=== PATIENT | female | born 1990 | race Caucasian/White ===

== ENCOUNTER 2019-12-18 15:47 | Emergency (ER) | payer OTHER, SELFPAY ==
--- NOTE | ~2019-12-18 | XR_ITS ---
EXAMINATION: XR sacrum coccyx min 2V DATE: 12/18/2019 17:07 INDICATION: Coccygeal pain. Fall. TECHNIQUE: 3 views of the sacrum and coccyx were obtained. COMPARISON: None. FINDINGS: Bone alignment is normal. No fracture. The sacroiliac joints are normal. There is an intrau terine device in expected position. IMPRESSION: 1. No fracture. Reviewed, dictated and finalized at location A. IMPRESSION: 1. No fracture.
--- NOTE | 2019-12-18 15:58 | ED.FALL ---
HPI - Fall General Chief Complaint: Back Pain/Injury Stated Complaint: fell and hurt tailbone Time Seen by Provider: 12/18/19 15:58 Source: patient Mode of arrival: ambulatory Limitations: no limitations History of Present Illness HPI Narrative: A 29-year-old woman comes in today complaining of tailbone pain after she slipped on some concrete and landed on her backside about 2 hours ago. He states he has had no numbness or tingling and while she landed on her wrist she currently has no wrist pain. She denies any other injury. complaint: fall Onset (ago): hour(s) (2) Fall from: standing Fall witnessed: no Place fall occurred: home Loss of consciousness: none Prolonged down time: no Symptoms prior to fall: none Context: tripped/slipped Location of injury: buttocks Severity: severe Quality: sharp Associated symptoms (after fall): denies Related Data Allergies Allergy/AdvReac Type Severity Reaction Status Date / Time No Known Allergies Allergy Verified 12/18/19 16:04 Review of Systems Constitutional: Constitutional: Denies chills, Denies fever(s) and Denies weakness Eyes: Eyes: Denies change in vision and Denies photophobia ENT: Denies dysphagia, Denies nasal congestion and Denies sore throat Cardiovascular: Cardiovascular: Denies chest pain and Denies radiating jaw, neck or arm pain Respiratory: Respiratory: Denies cough, Denies dyspnea and Denies wheezing Gastrointestinal: Gastrointestinal: Denies abdominal pain, Denies diarrhea, Denies nausea and Denies vomiting Genitourinary: Genitourinary: Denies hematuria, Denies nocturia and Denies dysuria Musculoskeletal: Musculoskeletal: Reports back pain, Denies arthralgias and Denies joint swelling Integumentary/Breasts: Skin/Breast: Denies pruritus, Denies erythema and Denies rash Neurologic: Denies vertigo, Denies dizziness and Denies syncope Hematologic/Lymphatic: Hematologic/Lymphatic: Denies easy bleeding and Denies easy bruising Allergic/Immunologic: Allergic/Immunologic: Denies lip swelling and Denies wheezing PMFSH Social History Social History (Updated 12/18/19 @ 16:14 by Abdelrahman Munguia MD) Smoking status: Never smoker Substance use: never Living arrangements: with family Exam Const: General: healthy appearing and alert Nutritional Appearance: obese Orientation/consciousness: patient oriented x3 Other: Moderate acute distress. Standing in the room. HENMT: Mouth: Yes moist mucous membranes Eyes: Conjunctivae: conjunctivae normal Pupils: Equal, round and reactive pupils present EOM: EOMs intact bilaterally Resp: Effort & Inspection: normal respiratory effort and not labored Auscultation: clear to auscultation bilaterally, no rales, no rhonchi and no wheezes Cardio: Rate: regular rate Rhythm: regular rhythm Heart sounds: no murmurs Back/Spine/Pelvis: Other: Tenderness over the lower part of the sacrum and the coccyx. There is some mild bruising present. There is no step-off, swelling or abnormal contour. Skin: General skin exam: normal color, no jaundice and no pallor Rashes: no rashes Neuro: General: patient oriented x3, moves all extremities, no focal motor deficits and CN's II-XI intact bilaterally Extrem: General: normal to inspection and no clubbing, cyanosis or edema Psych: Appearance: grossly normal and well kempt Mental Status: mental status grossly normal Affect: normal affect Attitude: cooperative Thought content: Yes Normal thought content present Discharge Plan Discharge Clinical Impression: Acute coccygeal pain Patient Disposition: Home, Self-Care Condition: Stable Instructions: Coccyx Injury (ED) Additional Instructions: Use a donut pillow for sitting. Avoid prolonged sitting or lying on your back. Prescriptions: New hydrocodone-acetaminophen [[place]] 5-325 mg tablet 1 tablet PO Q6H PRN (Reason: pain) Qty: 20 RF: 0 Follow-up/Referrals: UNKNOWN,DOCTOR [Primary Care P
[2019-12-18 16:05] VITALS: BP 137/77; PULSE 125; RESP 20; TEMP 36.9; O2SAT 99
[2019-12-18] MEDS: KETOROLAC (*BKC) 60 MG/2 ML VIAL IM (16:17)
[2019-12-18 16:43] LABS: Pregnancy On Board Control POS; Specific Gravity Ur 1.015 (1.010-1.035); Urine Pregnancy Test Negative
--- NOTE | 2019-12-18 17:12 | PC.NURSE ---
Pt states pain is still present but is improved. Is now able to stand up straight without difficulty. Awaiting dispo per Dr Munguia.
[2019-12-18 17:32] VITALS: BP 121/73; PULSE 92; RESP 18; O2SAT 98
== END 2019-12-18 17:32 | disposition home or self-care (01) ==
PROVIDERS: Emergency Provider Emergency Medicine
DX: M53.3 Sacrococcygeal disorders, not elsewhere classified (principal)
CPT/HCPCS: 72220; 81025; 96372; 99283; A9270; J1885

== ENCOUNTER 2021-01-26 15:07 | Outpatient (CLI) | payer OTHER, SELFPAY | END 2021-01-26 15:08 | disposition home or self-care (01) | LOC: CHSLAB 15:08 | PROVIDERS: Visit Provider Obstetrics & Gynecology | DX: O20.0 Threatened abortion (principal) | CPT/HCPCS: 36415; 84702; 86850; 86900; 86901 ==

== ENCOUNTER 2021-01-30 13:10 | Outpatient (CLI) | payer OTHER, SELFPAY | END 2021-01-30 13:11 | disposition home or self-care (01) | LOC: CHSLAB 13:12 | PROVIDERS: Visit Provider Obstetrics & Gynecology | DX: O03.9 Complete or unspecified spontaneous abortion without complication (principal) | CPT/HCPCS: 36415; 84702 ==

== ENCOUNTER 2021-02-06 11:17 | Outpatient (CLI) | payer OTHER, SELFPAY ==
[2021-02-06 11:49] LABS: Beta HCG Quantitative < 1.00 mIU/mL (0-6)
== END 2021-02-06 11:18 | disposition home or self-care (01) ==
LOC: CHSLAB 11:20
PROVIDERS: Visit Provider Obstetrics & Gynecology
DX: O03.9 Complete or unspecified spontaneous abortion without complication (principal)
CPT/HCPCS: 36415; 84702

== ENCOUNTER 2021-06-15 11:44 | Outpatient (CLI) | payer OTHER, SELFPAY ==
[2021-06-15 12:08] LABS: Add Urine Microscopic? YES; Appearance Urine Sl Cloudy (Clear); Bilirubin Urine Negative (Negative); Blood Urine Negative (Negative); Color Urine Yellow (Yellow); Glucose Urine UA Negative (Negative); Ketones Urine Negative (Negative); Leukocyte Esterase Ur Negative (Negative); Nitrate Urine Negative (Negative); Protein Urine Negative (Negative)
[2021-06-15 12:12] LABS: Bacteria Urine 1+ /hpf; RBC Urine None seen /hpf (0-2); Squamous Epithelial Cell Urine Moderate /hpf (Few); WBC Urine None seen /hpf (0-3)
[2021-06-15 12:19] LABS: Amphetamine Screen Urine Negative (Negative); Barbiturate Screen Urine Negative (Negative); Benzodiazepines Screen Urine Negative (Negative); Cannabinoid Screen Urine Negative (Negative); Cocaine Screen Urine Negative (Negative); Methadone Screen Urine Negative (Negative); Opiate Screen Urine Negative (Negative); Phencyclidine Screen Urine Negative (Negative)
[2021-06-15 12:54] LABS: Basophils Absolute Auto 0.01 K/mm3 (0.00-0.10); Basophils Percent Auto 0.1 % (0.0-1.0); Eosinophils Absolute Auto 0.03 K/mm3 (0.02-0.50); Eosinophils Percent Auto 0.4 % (1.0-6.0); Hematocrit 37.1 % (35.0-49.0); Hemoglobin 13.2 g/dL (12.0-15.0); Immature Granulocyte Absolute 0.03 K/mm3 (0.00-0.00); Immature Granulocyte Percent A 0.4 % (0.0-0.0); Lymphocytes Absolute Auto 1.38 K/mm3 (1.10-4.50); Lymphocytes Percent Auto 18.4 % (18.0-42.0); Mean Corpuscular HGB Conc 35.6 g/dL (32.0-36.0); Mean Corpuscular Hemoglobin 32.4 pg (27.0-31.0); Mean Corpuscular Volume 91.2 fL (78.0-102.0); Mean Platelet Volume 9.1 fl (9.2-11.8); Monocytes Absolute Auto 0.62 K/mm3 (0.10-0.90); Monocytes Percent Auto 8.3 % (2.0-11.0); Neutrophils Absolute Auto 5.4 K/mm3 (1.7-7.2); Neutrophils Percent Auto 72.4 % (50.0-70.0); Platelet Count Result 224 K/mm3 (150-420); Red Blood Count 4.07 M/mm3 (4.20-5.40); Red Cell Distribution Width 11.5 % (11.6-14.4); White Blood Count 7.5 K/mm3 (4.8-10.8)
[2021-06-15 13:13] LABS: Glucose 1 Hour PP 50gm Dose 95 mg/dL (70-130)
[2021-06-15 13:35] LABS: HIV 1 P24 AG Negative (Negative); HIV 1/2 AB Negative (Negative)
[2021-06-18 15:57] LABS: RPR Screen Reactive (Non-Reactive)
[2021-06-18 18:11] LABS: RPR Titer Reactive 1:1
[2021-06-18 18:52] LABS: Rubella IgG Antibody 4.72 Index
[2021-06-19 10:47] LABS: FTA-ABS Nonreactive (Nonreactive)
[2021-06-20 03:39] LABS: Hepatitis B Surface Antigen Nonreactive (Nonreactive); Hepatitis C Signal to Cutoff 0.01 ratio (<1.00); Hepatitis C Virus Antibody Nonreactive (Nonreactive)
== END 2021-06-15 11:45 | disposition home or self-care (01) ==
LOC: CHSLAB 11:47
PROVIDERS: Visit Provider Advanced Practice Midwife
DX: Z36.89 Encounter for other specified antenatal screening (principal)
CPT/HCPCS: 36415; 80307; 81001; 82947; 85025; 86592; 86703; 86762; 86850; 86900; 86901; 87077; 87086

== ENCOUNTER 2021-06-22 16:14 | Outpatient (CLI) | payer OTHER, SELFPAY ==
[2021-06-22 16:37] LABS: Add Urine Microscopic? YES; Appearance Urine Sl Cloudy (Clear); Bilirubin Urine Negative (Negative); Blood Urine Negative (Negative); Color Urine Yellow (Yellow); Glucose Urine UA Negative (Negative); Ketones Urine Negative (Negative); Leukocyte Esterase Ur Negative (Negative); Nitrate Urine Positive (Negative); Protein Urine Negative (Negative); Specific Grav Ur 1.025 (1.010-1.020); pH Urine 6.5 (5.0-8.0)
[2021-06-22 16:44] LABS: Bacteria Urine 4+ /hpf; Squamous Epithelial Cell Urine Many /hpf (Few); WBC Urine 0-3 /hpf (0-3)
== END 2021-06-22 16:15 | disposition home or self-care (01) ==
LOC: CHSLAB 16:17
PROVIDERS: Visit Provider Advanced Practice Midwife
DX: Z36.9 Encounter for antenatal screening, unspecified (principal)
CPT/HCPCS: 81001; 87086

== ENCOUNTER 2021-09-08 15:48 | Outpatient (CLI) | payer OTHER, SELFPAY ==
--- NOTE | ~2021-09-08 | US_ITS ---
US OB /maternal detail DATE: 09/08/2021 17:10 INDICATION: screening TECHNIQUE: Real-time imaging and Doppler analysis COMPARISON: None FINDINGS: Live cagle intrauterine gestation, fetus in variable position during the examination. Anterior placenta, lower margin 3 cm above internal os. Subjectively normal amount of amniotic fluid. No evidence of cerebral ventriculomegaly. Normal cerebellum. Normal nuchal fold. Normal nose and lips. Normal spine. Four chamber heart with normal outflow tracts. Diaphragm intact. Fet al kidneys are normal; no hydronephrosis. Fluid demonstrated in stomach and urinary bladder. male genitalia. BPD 5.04 cm; 21 weeks 2 days Head circumference 19.51 cm; 21 weeks 5 days Abdominal circumference 16.58 cm; 21 weeks 4 days Femur length 3.73 cm; 21 weeks 6 days Composite age by Hadlock formula is 21 weeks 4 days plus or minus 1 week 4 days; THOR: 01/15/2022 Estimated weight: 445.4 plus or minus 67 grams HC/AC 1.18 (normal range 1.06-1.24) FL/AC 22.50 (normal range 20.00-24.00) FL/HC 19.12 (normal range 17.33-20.24) IMPRESSION: Composite age by Hadlock formula is 21 weeks 4 days plus or minus 1 week 4 days; THOR: Estimated weight: 445.4 plus or minus 67 grams Normal anatomy screen Reviewed, dictated and finalized at Location A. Reviewed, dictated and finalized at location A. [facility]ER IMPRESSION: Composite age by Hadlock formula is 21 weeks 4 days plus or minus 1 week 4 days; THOR: 01/15/2022 Estimated weight: 445.4 plus or minus 67 grams Normal anatomy screen
== END 2021-09-08 15:49 | disposition home or self-care (01) ==
LOC: ANHIMG 15:51
PROVIDERS: Visit Provider Obstetrics & Gynecology
DX: Z36.9 Encounter for antenatal screening, unspecified (principal)
CPT/HCPCS: 76805

== ENCOUNTER 2021-10-31 15:34 | Outpatient (CLI) | payer OTHER, SELFPAY ==
[2021-10-31 17:09] LABS: Basophils Absolute Auto 0.01 K/mm3 (0.00-0.10); Basophils Percent Auto 0.1 % (0.0-1.0); Eosinophils Absolute Auto 0.01 K/mm3 (0.02-0.50); Eosinophils Percent Auto 0.1 % (1.0-6.0); Hematocrit 34.8 % (35.0-49.0); Hemoglobin 12.4 g/dL (12.0-15.0); Immature Granulocyte Absolute 0.04 K/mm3 (0.00-0.00); Immature Granulocyte Percent A 0.4 % (0.0-0.0); Lymphocytes Absolute Auto 1.33 K/mm3 (1.10-4.50); Lymphocytes Percent Auto 14.1 % (18.0-42.0); Mean Corpuscular HGB Conc 35.6 g/dL (32.0-36.0); Mean Corpuscular Hemoglobin 34.1 pg (27.0-31.0); Mean Corpuscular Volume 95.6 fL (78.0-102.0); Mean Platelet Volume 9.6 fl (9.2-11.8); Monocytes Absolute Auto 0.74 K/mm3 (0.10-0.90); Monocytes Percent Auto 7.9 % (2.0-11.0); Neutrophils Absolute Auto 7.3 K/mm3 (1.7-7.2); Neutrophils Percent Auto 77.4 % (50.0-70.0); Platelet Count Result 231 K/mm3 (150-420); Red Blood Count 3.64 M/mm3 (4.20-5.40); White Blood Count 9.4 K/mm3 (4.8-10.8)
[2021-10-31 17:55] LABS: HIV 1 P24 AG Negative (Negative); HIV 1/2 AB Negative (Negative)
[2021-10-31 18:09] LABS: Glucose 1 Hour PP 50gm Dose 94 mg/dL (70-130)
[2021-11-02 16:41] LABS: RPR Screen Non-Reactive (Non-Reactive)
== END 2021-10-31 15:35 | disposition home or self-care (01) ==
PROVIDERS: PCP Advanced Practice Midwife; Visit Provider Advanced Practice Midwife
DX: Z36.9 Encounter for antenatal screening, unspecified (principal)
CPT/HCPCS: 36415; 82947; 85025; 86592; 86703; 86850

== ENCOUNTER 2022-04-15 07:48 | Observation (INO) | payer OTHER, SELFPAY ==
--- NOTE | ~2022-04-15 | CT_ITS ---
EXAMINATION: CT thoracic spine wo con DATE: 04/15/2022 08:56 INDICATION: Back pain. TECHNIQUE: Computed tomography (CT) of the thoracic spine was performed without intravenous contrast. The dose-length product was 1566.53 mGy-cm. Automated exposure control and iterative reconstruction technique were employed. COMPARISON: None FINDINGS: There is mild levoscoliosis. Vertebral body heights are maintained. There is mild degenerat jessica disc disease of the lower thoracic spine multiple levels. There is dependent atelectasis in the l ungs. No significant spinal stenosis. Calcified granuloma in the left lower lobe. IMPRESSION: 1. No acute abnormality of the thoracic spine. 2: Mild lumbar spondylosis with levocurvature of the thoracic spine. Reviewed, dictated and finalized at location A.
--- NOTE | ~2022-04-15 | CT_ITS ---
EXAMINATION: CT lumbar spine wo con DATE: 04/15/2022 08:55 INDICATION: Low back pain TECHNIQUE: Computed tomography (CT) of the lumbar spine was performed without intravenous contrast. T he dose-length product was 1566.53 mGy-cm. Automated exposure control and iterative reconstruction te chnique were employed. COMPARISON: None FINDINGS: Vertebral body heights are maintained. No fracture or traumatic malalignment. Mild levocurv ature of the lumbar spine. There is an IUD in the uterus. There is a Fields catheter present. Small am ount of free fluid in the pelvis. No significant paraspinal soft tissue abnormality. There is annular disc bulging at L3-4, L4-5 and L5-S1. There is mild spinal stenosis at L4-5. No significant neural f oraminal narrowing. IMPRESSION: 1. No acute abnormality of the lumbar spine. 2: Mild lumbar spondylosis. Reviewed, dictated and finalized at location A.
--- NOTE | 2022-04-15 07:53 | ED.GENADULT ---
HPI - General Adult General Chief complaint: Back Pain/Injury Stated complaint: ambulance History of Present Illness HPI narrative: Mona is a 31F with a PMH of DJD and eclampsia that presented to the ED via EMS with back pain. She had part of her back go out yesterday and she was in the shower this morning and the whole back went out. She went down and could not get up. She was given 4mg of morphine that only brought the pain down to an 8. She had to be extracted with a back board and was transported in prone. She can move her lower extremities and there was no loss of bowel or bladder control. Related Data Home Medications Medication Instructions Recorded Confirmed No Home Medications 04/15/22 04/15/22 Allergies Allergy/AdvReac Type Severity Reaction Status Date / Time latex Allergy Hives Verified 04/15/22 08:13 Review of Systems Constitutional: Constitutional: Reports no additional constitutional complaints Eyes: Eyes: Reports no additional eye complaints ENT: Reports system reviewed and no additional complaints, except as documented Cardiovascular: Cardiovascular: Reports no additional cardiovascular complaints Respiratory: Respiratory: Reports no additional respiratory complaints Gastrointestinal: Gastrointestinal: Reports no additional gastrointestinal complaints Genitourinary: Genitourinary: Reports no additional female genitourinary complaints Musculoskeletal: Musculoskeletal: Reports no additional musculoskeletal complaints Integumentary/Breasts: Skin/Breast: Reports system reviewed and no additional complaints, except as docu Neurologic: Reports system reviewed and no additional complaints, except as documented Psychiatric: Psychiatric: Reports no additional psychiatric complaints Endocrine: Endocrine: Reports no additional endocrine complaints Hematologic/Lymphatic: Hematologic/Lymphatic: Reports no additional hematologic/lymphatic complaints Allergic/Immunologic: Allergic/Immunologic: Reports no additional allergic/immunologic complaints [facility] Social History Social History (Updated 12/18/19 @ 16:14 by Abdelrahman Munguia MD) Smoking status: Never smoker Alcohol intake: former Drinks per week: 1 Substance use: never Spiritual care concerns: No Exam Const: Nutritional Appearance: well nourished Orientation/consciousness: patient oriented x3 Other: In mild distress HENMT: Head: normal to inspection Ears: external ears normal General nose exam: Normal external nose present Face and sinus: normal facial exam Eyes: Conjunctivae: conjunctivae normal Neck: Neck: normal visual inspection Chest: Chest palpation & inspection: normal inspection of the chest Resp: Effort & Inspection: normal respiratory effort Auscultation: clear to auscultation bilaterally Cardio: Rate: regular rate Rhythm: regular rhythm Heart sounds: no murmurs Skin: General skin exam: normal color Rashes: no rashes Neuro: General: patient oriented x3 and moves all extremities Cranial nerves: Yes Nystagmus not present Extrem: General: normal to inspection Psych: Mental Status: mental status grossly normal Course Course Emergency Course: She was given 50mcg of fentanyl for pain. EXAMINATION: CT lumbar spine wo con DATE: 04/15/2022 08:55 INDICATION: Low back pain TECHNIQUE: Computed tomography (CT) of the lumbar spine was performed without intravenous contrast. The dose-length product was 1566.53 mGy-cm. Automated exposure control and iterative reconstruction technique were employed. COMPARISON: None FINDINGS: Vertebral body heights are maintained. No fracture or traumatic malalignment. Mild levocurvature of the lumbar spine. There is an IUD in the uterus. There is a Fields catheter present. Small amount of free fluid in the pelvis. No significant paraspinal soft tissue abnormality. There is annular disc bulging at L3-4, L4-5 and L5-S1. There is mild spinal stenosis at L4-5. No signific
[2022-04-15] MEDS: fentaNYL CITRATE INJ (*CRX) 100 MCG/2 ML VIAL 50 MCG IV PUSH (07:59)
[2022-04-15 08:04] VITALS: BP 121/75; PULSE 93; RESP 17; TEMP 36.8; O2SAT 100
[2022-04-15 08:32] LABS: Pregnancy On Board Control Positive; Urine Pregnancy Test Negative
[2022-04-15 10:12] VITALS: BP 122/71; PULSE 88; RESP 16; TEMP 36.8; O2SAT 100
--- NOTE | 2022-04-15 10:48 | ADMGEN ---
This patient, Mona Ramirez, was admitted to 2nd Floor Room 227-1. Patient/family oriented to hospital policies and general routines including ID bracelet, bed and alarms, visiting hours, pain management, procedures, bathroom and other care routines, personal items, smoking policy, room service/diet, and visiting hours. Information on how to activate the Rapid Response Team has been discussed. Patient/Family are encouraged to report perceived risks to care and to ask questions if they do not understand what they are told or what they should do.
[2022-04-15 10:50] VITALS: BMI 38.0
[2022-04-15 11:08] VITALS: BP 118/71; PULSE 85; RESP 20; TEMP 36.4; O2SAT 100
[2022-04-15] MEDS: KETOROLAC 15 MG/ML VIAL (*BKC) IV PUSH ×2 (11:33→17:57)
[2022-04-15] MEDS: CYCLOBENZAPRINE HCL 10 MG TABLET PO ×2 (11:33→20:24)
[2022-04-15] MEDS: predniSONE 20 MG TABLET 40 MG PO (11:54)
[2022-04-15 16:00] VITALS: BP 103/68; PULSE 100; RESP 18; TEMP 36.6; O2SAT 97
[2022-04-15 19:54] VITALS: PULSE 100; RESP 18; O2SAT 97
[2022-04-15] MEDS: ACETAMINOPHEN 325 MG TABLET 650 MG PO (20:24)
[2022-04-16] VITALS: BP 117/68; PULSE 99; RESP 16; TEMP 36.4; O2SAT 99
[2022-04-16] MEDS: KETOROLAC 15 MG/ML VIAL (*BKC) IV PUSH ×2 (00:19→06:19)
[2022-04-16] MEDS: ACETAMINOPHEN 325 MG TABLET 650 MG PO (04:34)
[2022-04-16] MEDS: CYCLOBENZAPRINE HCL 10 MG TABLET PO (04:34)
[2022-04-16 08:00] VITALS: BP 118/80; PULSE 103; RESP 16; TEMP 36.6; O2SAT 100
[2022-04-16] MEDS: predniSONE 10 MG TABLET 30 MG PO (08:34)
[2022-04-16] MEDS: ENOXAPARIN 40 MG/0.4 ML SYRINGE SUB-Q (08:34)
--- NOTE | 2022-04-16 10:31 | PM.SD2 ---
Same Day Admit/Disch: HPI History of Present Illness Chief complaint: BACK PAIN Narrative: Mona Ramirez is a 31 year old female with a PMH of DJD and eclampsia that presented to the ED via EMS with back pain. She had part of her back go out yesterday and she was in the shower this morning and the whole back went out. She went down and could not get up. She was given 4mg of morphine that only brought the pain down to an 8. She had to be extracted with a back board and was transported in prone. She can move her lower extremities and there was no loss of bowel or bladder control. Admitted for pain control PMFSH Social History Social History Smoking status: Never smoker Alcohol intake: former Drinks per week: 1 Substance use: never Spiritual care concerns: No Comments At time as signature, I have reviewed and agree with nursing past medical, social, surgical and family history. Please see nursing chart for further information. There is no relevant family history pertinent to the presenting complaint. Same Day Admit/Disch: Med Pre-admit Medications Home Medications Medication Instructions Recorded Confirmed Type cyclobenzaprine 10 mg tablet 10 mg PO Q8H PRN Muscle Spasm #20 04/16/22 Rx tabs prednisone 10 mg tablet 10 mg PO DAILY #14 tabs 04/16/22 Rx Exam Narrative: GENERAL:Well-appearing, well-nourished, and in no acute distress. HEAD:Normocephalic, atraumatic. EYES: PERRLA and EOMI. ENT: Nares clear, no rhinorrhea or epistaxis. Mucous membranes moist. NECK: Supple. CHEST: Clear to auscultation. No respiratory distress. HEART: Regular rate and rhythm. No murmur heard. Normal peripheral pulses. ABDOMEN: Soft, nontender, nondistended, normal active bowel sounds. EXTREMITIES:decreased due to pain range of motion. No edema. SKIN: Warm, dry, no rash. NEURO: No focal deficits. Alert and oriented x3. DS: Summary Hospital Course Reason for hospitalization: Back pain inability to move Hospital Course: This is a 31 year old female that was seen in the emergency room due to intractable back pain and was brought in by ambulance out of the shower as she was not able to get up. Patient recently had a baby 6 weeks and in breast feeding. Xr and Ct scan did not show any fractures or reason why patient should be having all of this pain I kept patient as observation gave muscle relaxant and some steroids and symptoms improved where she was able to ambulate and move. Patient has a newly schedule appointment at [facility] with a MRI schedule as well. Time Spent with Patient Time attestation: Total time spent providing and/or coordinating discharge services: DS: Admitting Diagnosis Discharge Date 04/16/2022 Admitting Diagnosis Intractable back pain, lumbar Spasm DS: Discharge Diagnosis Discharge Diagnosis (1) Intractable back pain: Code(s): M54.9 - Dorsalgia, unspecified Status: Acute Assessment and Plan: Appointment at [facility] on Saturday MRI of spine Continue to take muscle spasm medication Discharge Plan Discharge Attending physician on discharge: Geovanny Soto Consulting providers: Hudson Wilkes ; Glen Guerin Discharging Clinician: Hudson Wilkes Anticipated Discharge Date/Time: 04/16/22 10:21 Patient Disposition: Home, Self-Care Activity: may shower, no straining and as tolerated Diet: as tolerated and regular Discharge Instructions: Ice and heat to the area for 20-30 minutes Gentle stretching exercises, Caution with lifting, bending, stooping, twisting Avoid pushing, pulling Take muscle relaxants as directed--caution drowsiness and no driving or alcohol Anti-inflammatory medicine as directed--take with food May take the muscle relaxant and anti-inflammatory at the same time Follow-up with your PCP if not improving in 5-7 days Keep your schedule appointment on Saturday Patient Inst
--- NOTE | 2022-04-16 10:46 | PC.NURSE ---
Patient walked to toilet with SBA. Able to urinate without difficulty. No c/o of discomfort or burning
--- NOTE | 2022-04-16 11:27 | PC.NURSE ---
Patient discharge instructions given. Taken to lobby by wheelchair to private auto.
--- NOTE | 2022-04-23 12:23 | PC.NURSE ---
Unable to contact for discharge call back.
== END 2022-04-16 11:20 | disposition home or self-care (01) ==
LOC: CHSED 08:06 → CHS2ND 10:02
PROVIDERS: Admitting Provider Internal Medicine; Emergency Provider Family Medicine; PCP Advanced Practice Midwife; Visit Provider Internal Medicine
DX: M54.9 Dorsalgia, unspecified (principal); S39.012A Strain of muscle, fascia and tendon of lower back, initial encounter; M62.830 Muscle spasm of back
CPT/HCPCS: 72128; 72131; 81025; 96374; 96375; 96376; 97161; 99285; A9270; G0378; J1650; J1885; J3010; J7512

== ENCOUNTER 2023-05-07 20:34 | Emergency (ER) | payer OTHER, SELFPAY ==
--- NOTE | ~2023-05-07 | CT_ITS ---
EXAMINATION: CT abdomen pelvis wo con DATE: 05/07/2023 21:22 INDICATION: Left flank pain TECHNIQUE: Computed tomography (CT) of the abdomen and pelvis was performed without intravenous contr ast. Automated exposure control and iterative reconstruction technique were employed. The dose-length product was 475.24 mGy-cm. COMPARISON: None. FINDINGS: Lower thorax: Calcified left lower lobe granuloma Liver: Normal. Biliary/Gallbladder: Gallbladder is normal. No bile duct dilation. Pancreas: No mass or duct dilation. Spleen: Small hypodensity, likely cyst or hemangioma. Adrenals:No mass. Kidneys: No calcification. Mild right pelviectasis and ureterectasis. No suspicious mass. GI tract: No small or large bowel dilation. Normal appendix. Mesentery/Peritoneum: No ascites, mass, or free air. Retroperitoneum: No mass. Pelvis: 3 mm calcification in the distal left ureter. Pelvic organs are otherwise within normal limit s. Soft Tissues: Soft tissues and body wall unremarkable. Bones: No acute osseous finding. IMPRESSION: 3 mm distal left ureteral stone causing mild obstructive uropathy. Reviewed, dictated and finalized at location K.
[2023-05-07 20:37] VITALS: BP 161/90; PULSE 104; RESP 20; TEMP 37.1; O2SAT 99
--- NOTE | 2023-05-07 20:54 | ED.ABDPAIN ---
HPI - Abdominal Pain General Chief Complaint: Abdominal Pain Stated Complaint: side pain Time Seen by Provider: 05/07/23 20:39 Source: patient and RN notes reviewed Mode of arrival: ambulatory Limitations: no limitations History of Present Illness MD elicited complaint: flank pain Pertinent past history: none Onset (ago): hour(s) (2) Pain Consistency: constant Location: L flank Severity: severe Quality: stabbing and sharp Radiation: none Migration to: no migration Exacerbating factors: nothing Relieving factors: nothing Associated symptoms: nausea and vomiting Related Data Allergies Allergy/AdvReac Type Severity Reaction Status Date / Time latex Allergy Hives Verified 04/15/22 08:13 Review of Systems Review of Systems: All systems reviewed & are unremarkable except as noted in HPI and below PMFSH Past Medical History Medical History GERD (gastroesophageal reflux disease) Strain of lumbar region Surgical History Surgical History (Updated 05/07/23 @ 20:54 by Hayden Hayes MD) History of section Social History Social History Smoking status: Never smoker Alcohol intake: former Drinks per week: 1 Substance use: never Living arrangements: with family Spiritual care concerns: No Exam Const: General: healthy appearing, no acute distress and alert Nutritional Appearance: well nourished and obese Orientation/consciousness: patient oriented x3 Limitations: no limitations Other: female tech in room during examination. HENMT: Head: normal to inspection Ears: external ears normal Face/Nose/Sinus: Normal external nose present Face and sinus: normal facial exam Mouth: Yes moist mucous membranes Eyes: Conjunctivae: conjunctivae normal Pupils: Equal, round and reactive pupils present EOM: EOMs intact bilaterally Neck: Neck: normal visual inspection Resp: Effort & Inspection: normal respiratory effort Auscultation: clear to auscultation bilaterally Cardio: Rate: regular rate Rhythm: regular rhythm GI: GI Palp: Yes Soft to palpation and No Tenderness to palpation present (GI) Auscultation: normal bowel sounds Back/Spine/Pelvis: Back: CVA tenderness ( Moderate on the left) Cervical Spine: cervical ROM normal Thoracic/Lumbar Spine: thoraco-lumbar ROM normal Skin: General skin exam: normal color Rashes: no rashes Neuro: General: patient oriented x3, moves all extremities, no focal motor deficits and CN's II-XI intact bilaterally Speech: normal speech Gait exam (Neuro): Normal gait present Extrem: General: normal to inspection and no clubbing, cyanosis or edema Psych: Mental Status: mental status grossly normal Affect: normal affect Attitude: cooperative Course Course Emergency Course: symptoms significantly improved following Toradol IM. Vital Signs Vital signs: Vital Signs Temperature 37.1 C 05/07/23 20:37 Pulse Rate 104 H 05/07/23 20:37 Respiratory Rate 20 05/07/23 20:37 Blood Pressure 161/90 H 05/07/23 20:37 Pulse Oximetry 99 05/07/23 20:37 Oxygen Delivery Room Air 05/07/23 20:37 Temperature 37.1 C 05/07/23 20:37 Pulse Rate 104 H 05/07/23 20:37 Respiratory Rate 20 05/07/23 20:37 Blood Pressure 161/90 H 05/07/23 20:37 Pulse Oximetry 99 05/07/23 20:37 Oxygen Delivery Room Air 05/07/23 20:37 MDM - Abdominal Pain Differential Diagnosis Differential diagnosis: Likely calculus of kidney, constipation, diverticulitis, small bowel obstruction and other ( UTI, electrolyte abnormality, anemia.) Lab Data Attestation: I reviewed the patient's lab results. 05/07/23 20:57 05/07/23 20:57 Labs: Lab Results 05/07/23 05/07/23 Range/Units 20:50 20:57 WBC 7.5 (4.8-10.8) K/mm3 RBC 4.24 (4.20-5.40) M/mm3 Hgb 13.9 (12.0-15.0) g/dL Hct 39.3 (35.0-49.0) % MCV 92.7 (78.0
--- NOTE | 2023-05-07 20:54 | PC.NURSE ---
Present in room for exam
[2023-05-07 21:00] LABS: Appearance Urine Clear (Clear); Basophils Absolute Auto 0.02 K/mm3 (0.00-0.10); Basophils Percent Auto 0.3 % (0.0-1.0); Bilirubin Urine Negative (Negative); Blood Urine 3+ (Negative); Color Urine Yellow (Yellow); Eosinophils Absolute Auto 0.04 K/mm3 (0.02-0.50); Eosinophils Percent Auto 0.5 % (1.0-6.0); Glucose Urine UA Negative (Negative); Hematocrit 39.3 % (35.0-49.0); Hemoglobin 13.9 g/dL (12.0-15.0); Immature Granulocyte Absolute 0.02 K/mm3 (0.00-0.00); Immature Granulocyte Percent A 0.3 % (0.0-0.0); Ketones Urine Negative (Negative); Leukocyte Esterase Ur Negative LEU/UL (Negative); Lymphocytes Absolute Auto 1.85 K/mm3 (1.10-4.50); Lymphocytes Percent Auto 24.6 % (18.0-42.0); Mean Corpuscular HGB Conc 35.4 g/dL (32.0-36.0); Mean Corpuscular Hemoglobin 32.8 pg (27.0-31.0); Mean Corpuscular Volume 92.7 fL (78.0-102.0); Mean Platelet Volume 9.2 fl (9.2-11.8); Monocytes Absolute Auto 0.65 K/mm3 (0.10-0.90); Monocytes Percent Auto 8.6 % (2.0-11.0); Neutrophils Absolute Auto 4.9 K/mm3 (1.7-7.2); Neutrophils Percent Auto 65.7 % (50.0-70.0); Nitrate Urine Negative (Negative); Platelet Count Result 268 K/mm3 (150-420); Protein Urine Trace (Negative); Red Blood Count 4.24 M/mm3 (4.20-5.40); Red Cell Distribution Width 11.8 % (11.6-14.4); Specific Grav Ur 1.025 (1.010-1.020); Urobilinogen Urine 0.2 mg/dL (0.2-1.0); White Blood Count 7.5 K/mm3 (4.8-10.8)
[2023-05-07] MEDS: KETOROLAC 30 MG/ML VIAL (*BKC) IM (21:00)
[2023-05-07 21:09] LABS: Add Urine Microscopic? YES; Bacteria Urine 1+ /hpf; Mucus Urine Few /lpf; RBC Urine 21-50 /hpf (0-2); Squamous Epithelial Cell Urine Moderate /hpf (Few); WBC Urine 0-3 /hpf (0-3)
[2023-05-07 21:10] LABS: Pregnancy On Board Control Positive; Urine Pregnancy Test Negative
[2023-05-07 21:24] LABS: Alanine Aminotransferase 18 U/L (14-59); Albumin Level 3.9 g/dL (3.4-5.0); Alkaline Phosphatase 61 U/L (46-116); Anion Gap 14 mmol/L (8-16); Aspartate Amino Transferase 15 U/L (15-37); Bilirubin,Total 1.5 mg/dL (0.00-1.00); Blood Urea Nitrogen 8 mg/dL (7-18); Calcium 8.7 mg/dL (8.5-10.1); Carbon Dioxide 23 mmol/L (21-32); Chloride 106 mmol/L (98-108); Estimated CRCL calculation 99 ml/min; Estimated Glomerular Filt Rate > 60; Glucose 100 mg/dL (70-99); Osmolality Calculated 294 mOsm/kg (285-295); Potassium 3.4 mmol/L (3.5-5.1); Sodium 143 mmol/L (136-145); Total Protein 7.6 g/dL (6.4-8.2)
[2023-05-07 21:40] VITALS: BP 138/90; PULSE 72; RESP 20; TEMP 36.6; O2SAT 96
[2023-05-07] MEDS: TAMSULOSIN HCL 0.4 MG CAPSULE PO (22:00)
[2023-05-07 22:27] VITALS: BP 132/89; PULSE 66; RESP 20; TEMP 36.6; O2SAT 98
== END 2023-05-07 22:30 | disposition home or self-care (01) ==
PROVIDERS: Emergency Provider Emergency Medicine
DX: N20.0 Calculus of kidney (principal)
CPT/HCPCS: 36415; 74176; 80053; 81001; 81025; 85025; 96372; 99284; A9270; J1885

== ENCOUNTER 2023-07-03 14:01 | Outpatient (CLI) | payer OTHER, SELFPAY ==
--- NOTE | ~2023-07-03 | US_ITS ---
CORRECTED REPORT exam description [facility] [place] [facility] [place] This report was recreated on 07/04/23. Original report was EXAMINATION: US OB <= 14 weeks fetus w TV DATE: 07/03/2023 15:10 INDICATION: Vaginal spotting TECHNIQUE: Real-time transabdominal and transvaginal obstetric ultrasound. FINDINGS: No prior studies for comparison. The uterus measures 9.9 x 5 x 4.6 cm. There is an intrauterine gestational sac, with pole identified. The crown rump length measures 1.66 cm, which correlates with a estimated gestational age of 8 weeks 0 days. heart tones are identified measuring 157 BPM. There is a moderate size subchorionic hemorrhage. There is free fluid in the pelvic cul-de-sac. IMPRESSION: 1. SL IUP with an EGA of 8 weeks, 0 days (EDC by current ultrasound of 02/12/2024). 2: Moderate size subchorionic hemorrhage. Reviewed, dictated and finalized at location B. MTDD IMPRESSION: 1. SL IUP with an EGA of 8 weeks, 0 days (EDC by current ultrasound of ). 2: Moderate size subchorionic hemorrhage.
== END 2023-07-03 14:02 | disposition home or self-care (01) ==
PROVIDERS: Visit Provider Obstetrics & Gynecology Gynecology
DX: O26.21 Pregnancy care for patient with recurrent pregnancy loss, first trimester (principal)
CPT/HCPCS: 76801; 76817

== ENCOUNTER → 2023-07-25 15:42 | Outpatient (CLI) | payer OTHER, SELFPAY ==
--- NOTE | ~2023-07-25 | US_ITS ---
EXAMINATION: US OB <= 14 weeks fetus DATE: 07/25/2023 16:16 INDICATION: Follow-up subchorionic hematoma TECHNIQUE: Real-time transabdominal and transvaginal obstetric ultrasound. FINDINGS: No prior studies for comparison. The uterus measures 11.6 x 7.1 x 7.7 cm. There is an intrauterine gestational sac, with pole id entified. The crown rump length measures 4.29 cm, which correlates with a estimated gestational age of 11 weeks 1 day. heart tones are identified measuring 167 BPM. There are areas of subchorio yahir hemorrhage posteriorly measuring 3.1 x 1 x 1.7 cm and on the left measuring 1.3 x 1.3 x 1.1 cm th ere is a uterine fibroid measuring 4.9 cm. IMPRESSION: 1. SL IUP with an EGA of 11 weeks, 1 days (EDC by current ultrasound of 02/12/2024). 2: At least 2 separate areas of cystic subchorionic hemorrhage, largest measuring 3.1 x 1 x 1.7 cm. Reviewed, dictated and finalized at location A. IMPRESSION: 1. SL IUP with an EGA of 11 weeks, 1 days (EDC by current ultrasound of 02/12/20 24). 2: At least 2 separate areas of cystic subchorionic hemorrhage, largest measur ing 3.1 x 1 x 1.7 cm.
== END ==
PROVIDERS: PCP Obstetrics & Gynecology Gynecology; Visit Provider Obstetrics & Gynecology Gynecology
DX: O36.8911 Maternal care for other specified fetal problems, first trimester, fetus 1 (principal); Z3A.11 11 weeks gestation of pregnancy
CPT/HCPCS: 76801

== ENCOUNTER → 2023-08-13 12:10 | Outpatient (CLI) | payer OTHER, SELFPAY ==
--- NOTE | ~2023-08-13 | US_ITS ---
EXAMINATION: US OB follow up DATE: 08/13/2023 12:38 INDICATION: Spotting. TECHNIQUE: Real-time ultrasound of the pelvis was performed. COMPARISON: Ultrasound 07/25/2023, CT abdomen and pelvis 05/07/23 FINDINGS: There is a single living fetus in breech presentation. The placenta is anterior and covers the inter nal cervical os. There are multiple hypoechoic masses abutting the placenta and in the placenta measu ring up to 3.6 x 1.7 x 4.7 cm. heart rate is 150 beats per minute (bpm). The amniotic fluid vol ume is subjectively normal. The following biometric data were obtained: Biparietal diameter (BPD): 2.7 cm; head circumference (HC): 9.0 cm; abdominal circumference (AC): 8.3 cm; femur length (FL): 1.4 cm. These measurements are discordant with high cephalic index. Estimated weight is 94 g +/- 14 g, which correlates with the 64th percentile when 02/12/24 is us ed as estimated date of delivery. As single measurements, these parameters are each equal to the following estimated gestational ages: BPD: 14 weeks 5 days. HC: 14 weeks 0 days. AC: 14 weeks 4 days. FL: 14 weeks 0 days. estimated gestational age based solely on measurements from this exam is 14 weeks 2 days +/- 1 weeks 0 days. IMPRESSION: 1. Single living fetus in breech presentation. 2. Estimated weight is 94 g +/- 14 g, which correlates with the 64th percentile when 02/12/24 i s used as estimated date of delivery. 3. Discordant biometrics with high cephalic index. 4. Placental and periplacental masses again seen, most likely hematomas and venous lakes. 5. Placenta previa. Reviewed, dictated and finalized at location E. LY PRACTICE MD IMPRESSION: 1. Single living fetus in breech presentation. 2. Estimated weight is 94 g +/- 14 g, which correlates with the 64th per centile when 02/12/24 is used as estimated date of delivery. 3. Discordant biometrics with high cephalic index. 4. Placental and periplacental masses again seen, most likely hematomas and shaila ous lakes. 5. Placenta previa.
== END ==
PROVIDERS: PCP Obstetrics & Gynecology Gynecology; Visit Provider Obstetrics & Gynecology Gynecology
DX: O26.852 Spotting complicating pregnancy, second trimester (principal); O44.02 Complete placenta previa NOS or without hemorrhage, second trimester; Z3A.00 Weeks of gestation of pregnancy not specified
CPT/HCPCS: 76816

== ENCOUNTER → 2023-08-26 15:44 | Outpatient (CLI) | payer OTHER, SELFPAY ==
--- NOTE | ~2023-08-26 | US_ITS ---
EXAMINATION: US OB limited DATE: 08/26/2023 16:22 INDICATION: Subchorionic hematomas. Maternal care for other specified problems. TECHNIQUE: Real-time ultrasound of the pelvis was performed. COMPARISON: Ultrasound 08/13/2023 FINDINGS: There is a single fetus in variable presentation. The placenta covers the internal cervical os. Ther e is a 3.9 x 2.2 x 4.2 cm hypoechoic mass in the placenta. heart rate is 143 beats per minute ( bpm). The amniotic fluid volume is subjectively normal. IMPRESSION: 1. Single living fetus in variable presentation. 2. Placenta previa. 3. 3.9 x 2.2 x 4.2 cm hypoechoic mass in the placenta, which may be a venous rosa or hematoma. Reviewed, dictated and finalized at location E. COVERING INSTALLER IMPRESSION: 1. Single living fetus in variable presentation. 2. Placenta previa. 3. 3.9 x 2.2 x 4.2 cm hypoechoic mass in the placenta, which may be a venous la ke or hematoma.
== END ==
PROVIDERS: PCP Obstetrics & Gynecology Gynecology; Visit Provider Obstetrics & Gynecology Gynecology
DX: O36.8910 Maternal care for other specified fetal problems, first trimester, not applicable or unspecified (principal); O44.00 Complete placenta previa NOS or without hemorrhage, unspecified trimester
CPT/HCPCS: 76815

== ENCOUNTER 2023-11-16 07:08 | Outpatient (CLI) | payer OTHER, SELFPAY ==
[2023-11-16 08:43] LABS: Hematocrit 31.8 % (35.0-49.0); Hemoglobin 11.1 g/dL (12.0-15.0)
[2023-11-16 09:02] LABS: Glucose 1 Hour PP 50gm Dose 103 mg/dL (70-130); HIV 1 P24 AG Negative (Negative); HIV 1/2 AB Negative (Negative)
[2023-11-18 21:29] LABS: Vitamin D 25 Hydroxy 34 ng/mL (30-100)
== END 2023-11-16 07:09 | disposition home or self-care (01) ==
PROVIDERS: PCP Obstetrics & Gynecology Gynecology; Visit Provider Advanced Practice Midwife
DX: E55.9 Vitamin D deficiency, unspecified (principal); Z36.9 Encounter for antenatal screening, unspecified
CPT/HCPCS: 36415; 82306; 82947; 85014; 85018; 87806

== ENCOUNTER 2025-05-07 11:13 | Outpatient (CLI) | payer OTHER, SELFPAY ==
--- NOTE | ~2025-05-07 | XR_ITS ---
XR lumbar spine 2-3V 05/07/2025 11:58 Indication: Somatic dysfunction of the lumbar spine Procedure: 3 views lumbar spine Comparison: No prior studies for comparison. Findings: There is mild disc narrowing at L4-5 and L5-S1 with facet degenerative change at these leve ls. No fracture, subluxation or spondylolisthesis. Pedicles intact. Sacral foramen are symmetric. Impression: 1: Mild lumbar spondylosis. Reviewed, dictated and finalized at location A. Impression: 1: Mild lumbar spondylosis.
--- NOTE | ~2025-05-07 | XR_ITS ---
XR thoracic spine 3V 05/07/2025 11:58 Indication: Back pain Procedure: 4 views thoracic spine Comparison: No prior studies for comparison. Findings: Mild levocurvature of the thoracic spine. There is mild endplate degenerative changes at mu ltiple levels. Vertebral body heights are maintained. No evidence for listhesis. No paraspinal soft t issue abnormality. Surrounding osseous structures are unremarkable. Impression: 1: Mild thoracic spondylosis. Reviewed, dictated and finalized at location A. Impression: 1: Mild thoracic spondylosis.
--- NOTE | ~2025-05-07 | XR_ITS ---
XR_CERV2-3V_CR 05/07/2025 11:58 Indication: Somatic dysfunction Procedure: 3 view cervical spine Comparison: No prior studies for comparison. Findings: There is reversal of cervical lordosis, likely due to muscle spasm. No fracture, subluxatio n or dislocation. Lung apices are normal. Odontoid process is normal. Lateral masses normally aligned . Impression: 1: Reversal of cervical lordosis, likely due to muscle spasm. Reviewed, dictated and finalized at location A. Impression: 1: Reversal of cervical lordosis, likely due to muscle spasm.
== END 2025-05-07 11:14 | disposition home or self-care (01) ==
DX: M54.40 Lumbago with sciatica, unspecified side (principal); M99.03 Segmental and somatic dysfunction of lumbar region; M99.01 Segmental and somatic dysfunction of cervical region; M54.6 Pain in thoracic spine
CPT/HCPCS: 72040; 72072; 72100

== ENCOUNTER 2025-05-29 22:46 | Observation (INO) | payer OTHER, SELFPAY ==
--- NOTE | ~2025-05-29 | CT_ITS ---
EXAMINATION: CT abdomen pelvis w con, 05/30/2025 3:15 CDT HISTORY: abd pain COMPARISON: No comparisons available. TECHNIQUE: CT scan of the abdomen and pelvis was performed with contrast. Isovue 300, 92cc injected IV. One or more of the following dose reduction techniques were used: automated exposure control, adjustment of the mA and/or kV according to patient size, use of iterative reconstruction technique. Unless otherwise stated, incidental findings do not require dedicated follow up imaging FINDINGS: CT abdomen: LUNG BASES: The lung bases are clear. The visualized portions of the heart and pericardium are unremarkable. LIVER: Portal vein patent. No intrahepatic biliary dilatation. SPLEEN: Unremarkable, no splenomegaly. KIDNEYS: Right Kidney: Unremarkable. No calculi. No hydronephrosis. Left Kidney: Unremarkable. No calculi. No hydronephrosis ADRENAL GLANDS: Unremarkable. PANCREAS: Unremarkable. GALLBLADDER/BILIARY: Cholelithiasis, minimal stranding noted around the gallbladder. STOMACH AND ESOPHAGUS: Visualized stomach and esophagus within normal limits. BOWEL/MESENTERY: Moderate fecal content, no colitis or diverticulitis. Appendix normal. Mesentery normal. No dilated small bowel loops. ADENOPATHY/RETROPERITONEUM: No lymphadenopathy. AORTA/VASCULATURE: Normal caliber aorta. FREE FLUID OR FREE AIR: No free fluid.. CT pelvis: SOLID ORGANS/REPRODUCTIVE: Status post hysterectomy. No adnexal mass. There are cystic right ovary lesions the largest 3 x 3.3 cm probably functional cyst, outpatient pelvic ultrasound suggested in 6 weeks to assess resolution. BLADDER: Within normal limits. OSSEOUS STRUCTURES: No acute osseous abnormality.No suspicious lesions. OVERLYING SOFT TISSUES: Mild diastases of the abdominal wall at the umbilicus. IMPRESSION: 1. Correlate for symptoms of early cholecystitis. Incidental findings above Reviewed, dictated and finalized at location A.
--- OUTSIDE RECORDS SUMMARY | 2025-05-29 22:49 | XMS_ITS | Clinical Summary ---
Author Organization [facility] Address [address] [place] [address] Care Team Providers Care American History Professor Name Role Phone Kimmy Jones MD Primary Care Provider + Allergies Active Allergy Reactions Criticality Noted Date Comments Latex Hives,Itching,Redness Medium 06/07/2007 Medications No known medications Active Problems No known active problems Immunizations Immunization Administration Dates Next Due Dtap (Acel-Immune) 10/24/2023 Influenza (Generic) 09/07/2021 Tdap (Generic) 11/29/2021 Family History Medical History Relation Comments Hypertension Brother 1 Other Brother 1 Defects Brother 2 Down Syndrome No Known Problems Daughter Hypertension Father Sleep Apnea Father Diabetes Maternal Grandfather Stroke Maternal Grandfather Cancer Maternal Grandmother thyroid can cer Kidney Disease Maternal Grandmother Thyroid Maternal Grandmother Thyroid Disease Mother Cancer Paternal Grandfather Heart Disease Paternal Grandfather Cancer Paternal Grandmother No Known Problems Sister No Known Problems Son Relation Status Comments Brother 1 Alive Brother 2 Alive Daughter Alive Father Alive Maternal Grandfather Alive Maternal Grandmother Alive Mother Alive Paternal Grandfather Paternal Grandmother Alive Sister Alive Son Alive Social History Tobacco Use Types Packs/Day Years Used Date Smoking Tobacco: Never Passive Smoke Exposure: Never Smokeless Tobacco: Never Tobacco Cessation:Counseling Given: No Alcohol Use Standard Drinks/Week Comments Not Currently 0 (1 standard drink = 0.6 oz pur e alcohol) Humiliation, Afraid, Rape, and Kick questionnair e Answer Date Recorded Within the last year, have y ou been afraid of your partner or ex-partner? No 12/15/2021 Within the last year, have y ou been humiliated or emotionally abused in other ways by your partner or ex-partner? No Within the last year, have y ou been kicked, hit, slapped, or otherwise physically hurt by your partner or ex-partner? No 12/15/2021 Within the last year, have y ou been raped or forced to have any kind of sexual activity by your partner or ex-partner? No 12/15/2021 Social Connection and Isolat ion Panel [NHANES] Answer Date Recorded In a typical week, how many times do you talk on the phone with family, friends, or neighbors? More than three times a week 12/15/2021 How often do you get togethe r with friends or relatives? More than three times a week 12/15/2021 How often do you attend chur or scientology services? More than 4 times per year 12/15/2021 Do you belong to any clubs o r organizations such as temple groups, unions, fraternal or athletic groups, or school groups? Yes 12/15/2021 How often do you attend meet ings of the clubs or organizations you belong to? 1 to 4 times per year 12/15/2021 Are you , , di vorced, , never , or living with a partner? 12/15/2021 AUDIT-C Answer Date Recorded Q1: How often do you have a drink containing alc ohol? Never 12/15/2021 Q2: How many drinks containi ng alcohol do you have on a typical day when you are drinking? 1 or 2 12/15/2021 Q3: How often do you have six or more drinks on one occasion? Never 12/15/2021 Overall Financial Resource Strain (CARDIA) Answe r Date Recorded How hard is it for you to pa y for the very basics like food, housing, medical care, and heating? Not hard at all 12/15/2021 PHQ-2 Answer Date Recorded Patient Health Questionnaire-2 Score 0 01/04/2025 [facility] - Occupational Stress Questionnaire Answer Date Recorded Do you feel stress - tense, restless, nervous, or anxious, or unable to sleep at night because your mind is troubled all the time - these days? Not at all 12/15/2021 Exercise Vital Sign Answer Date Recorde d On average, how many days pe r week do you engage in moderate to strenuous exercise (like a brisk walk)? 3 days 12/15/2021 On average, how many minutes do you engage in exercise at this level? 30 min 12/15/2021 Hunger Vital Sign Answer Date Recorded Within the past 12 months, y ou worried that your food would run out before you got the money to buy more. Never true 12/16/19 22 Within the past 12 months, t he food you bought just didn't last and you didn't have money to get more. Never true 12/15/2021 PRAPARE - Transportation Answer Date Re corded In the past 12 months, has l ack of transportation kept you from medical appointments or from getting medications? No 11/22 In the past 12 months, has l ack of transportation kept you from meetings, work, or from getting things needed for daily living? No 12/15/2021 Housing Stability Vital Sign Answer Gomez e Recorded In the last 12 months, was t here a time when you were not able to pay the mortgage or rent on time? No 12/15/2021 In the last 12 months, how many places have you lived? 2 12/15/2021 In the last 12 months, was t here a time when you did not have a steady place to sleep or slept in a snf (including now)? 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 Gender Identity Female 11/06/2021 8:58 AM MACHINE CAGE MAKER Sexual Orientation Not on file Last Filed Vital Signs Vital Sign Reading Time Taken Comments Blood Pressure 112/69 01/04/2025 8:54 AM CDT Pulse 86 01/04/2025 8:54 AM CDT Temperature 36.7 C (98.1 F) 01/04/2025 8:54 AM CDT Respiratory Rate 20 12/21/2021 1:00 PM CDT Oxygen Saturation 99% 01/04/2025 8:54 AM CDT Inhaled Oxygen Concentration - - Weight 108.4 kg (239 lb) 01/04/2025 8:54 AM CDT Height 165.1 cm (5' 5) 01/04/2025 8:54 AM CDT Body Mass Index 39.77 01/04/2025 8:54 AM CDT Plan of Treatment Upcoming Encounters Date Type Department Care Team (Late st Contact Info) Description 01/13/2026 8:30 AM CDT Office Visit [facility] - [place] [address] [place] [id number] Kimmy Jones MD [address] [place] [address] Health Maintenance Due Date Last Done Comments Hepatitis C 2008 Hepatitis B Vaccines (1 of 3 - 19+ 3-dose series) 2009 HPV Vaccines (1 - 3-dose SCD M series) 2017 COVID-19 Vaccine ( - 2023-2 5 season) 2025 Annual Physical 01/04/2026 01/04/2025 DTaP, Tdap and Td Vaccines ( 3 - Td or Tdap) 10/24/2033 10/24/2023, 11/29/2021 PHQ-2 (Physician [place]) Completed 01/04/2025 Meningococcal B Vaccine Aged Out No l onger eligible based on patient's age to complete this topic Meningococcal Vaccine Aged Out No pao brittany eligible based on patient's age to complete this topic Pneumococcal Vaccine: Pediatrics (0 to 5 Years) and At-Risk Patients (6 to 49 Years) Aged Out No longer eligible b ased on patient's age to complete this topic RSV Immunizations Under 20 Months Aged Out No longer eligible b ased on patient's age to complete this topic Insurance Advance Directives * Full Code (Latest Code Status on File) Date Activated Date Inactivated Comments 12/16/2021 5:10 AM 12/22/2021 12:17 AM * Full Code Date Activated Date Inactivated Comments 12/15/2021 9:52 PM 12/16/2021 5:09 AM * Full Code Date Activated Date Inactivated Comments 12/11/2021 6:34 PM 12/11/2021 10:00 PM * Full Code Date Activated Date Inactivated Comments 12/10/2021 7:20 PM 12/10/2021 9:47 PM Care Teams American History Professor Relationship Specialty Start Date End Date Kimmy Jones MD [address] [place] [id number] PCP - General FAMILY PRACTICE 01/04/25
--- OUTSIDE RECORDS SUMMARY | 2025-05-29 22:49 | XMS_ITS | Clinical Summary ---
Author Organization [employer] [address] [place] [address] Phone Care Team Providers Care Riveter Name Role Phone Unavailable Primary Care Provider Unavailabl e Allergies Active Allergy Reactions Criticality Noted Date Comments Latex Hives,Itching,Other (See Comments),Rash,Swelling High 06/07/2007 Medications VIT-IRON FUM-FOLIC AC ORALIndications: supplement Take 1 Tablet by mouth daily. 12/25/2023 Active famotidine (PEPCID) 40 mg tabletIndication s:reflux Take 1 Tablet (40 mg) by mouth 2 times daily. 90 Tablet 3 12/06/2023 9:33 AM CDT 12/06/2023 Active ibuprofen (MOTRIN) 800 mg tabletIndication s:mild to mod pain Take 1 Tablet (800 mg) by mouth every 6 hours as needed for Pain, Mild. 60 Tablet 1 12/19/2023 1:49 PM CDT 12/19/2023 Active Active Problems Problem Noted Date Diagnosed Date Wound dehiscence 12/20/2023 Status post section 12/20/2023 Protein-calorie malnutrition, severe 12/20/2023 Acute blood loss anemia 12/15/2023 Coagulopathy 12/15/2023 Bleeding 12/15/2023 Exhausted vascular access 12/15/2023 Placenta increta in third trimester 12/15/2023 History of abdominal hysterectomy 12/15/2023 Delivery by emergency section C-Hyst 12/13 - girl (NICU) - JW 12/14/2023 Placenta accreta in second trimester 10/16/2023 History of delivery 10/16/2023 History of pre-eclampsia in prior , currently 10/16/2023 Immunizations Immunization Administration Dates Next Due (INFANRIX)(6 WKS-6 YRS) DIPT HERIA, TETANUS TOXOIDS, AND ACCELLULAR PERTUSSIS VACCINE (DTAP), 0.5 ML IM 10/24/2023 Social History Tobacco Use Types Packs/Day Years Used Date Smoking Tobacco: Never Smokeless Tobacco: Never Alcohol Use Standard Drinks/Week Comments Not Currently 0 (1 standard drink = 0.6 oz pur e alcohol) OASIS D0700: Social Isolation Answer Da te Recorded Frequency of experiencing loneliness or isolatio n Never 01/31/2024 OASIS B1300: Health Literacy Answer Gomez e Recorded Frequency of needing help to read materials from doctor or pharmacy Never 01/31/2024 Feeling Safe Answer Date Recorded Are you in a relationship wi th someone who hurts you emotionally and/or physically? 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 Gender Identity Not on file Sexual Orientation Not on file Last Filed Vital Signs Vital Sign Reading Time Taken Comments Blood Pressure 126/70 01/31/2024 7:30 AM CDT Pulse 73 01/31/2024 7:30 AM CDT Temperature 36.5 C (97.7 F) 01/31/2024 7:30 AM CDT Respiratory Rate 16 01/31/2024 7:30 AM CDT Oxygen Saturation 98% 01/31/2024 7:30 AM CDT Inhaled Oxygen Concentration - - Weight 93.4 kg (206 lb) 01/27/2024 1:06 PM CDT Height 165.1 cm (5' 5) 01/27/2024 1:06 PM CDT Body Mass Index 34.28 01/27/2024 1:06 PM CDT Plan of Treatment Health Maintenance Due Date Last Done Comments HEPATITIS B VACCINES (1 of 3 - 19+ 3-dose series) 2009 HPV VACCINES (1 - 3-dose SCDM series) 2017 INFLUENZA VACCINE (#1) 2025 09/07/2021 DTAP/TDAP/TD VACCINES (3 - Td or Tdap) 10/24/2033, 11/29/2021 Medical Devices Implanted Type Area Dairy Scientist Device Identifier Shelf Expiration Date Model / Serial / Lot Hemostat Sidney Ah Powder 3gm [id number] - [id number] Implanted:Qt y: 1 on 12/14/2023 by Russell Chase MD at [facility] Hemostatic N/A: Abdomen BARD DAVOL [id number] 04/19/2028 [id number] / / [id number] Insurance [facility] [id number] RX [employer] (INTERNAL) [facility] Internal Plans [facility] [id number] Advance Directives For more information, please contact: [phone] * Full Code (Latest Code Status on File) Date Activated Date Inactivated Comments 12/19/2023 11:10 PM 12/23/2023 6:13 PM * Full Code Date Activated Date Inactivated Comments 12/16/2023 11:38 AM 12/19/2023 4:27 PM * Full Code Date Activated Date Inactivated Comments 12/16/2023 11:37 AM 12/16/2023 11:38 AM * Full Code Date Activated Date Inactivated Comments 12/14/2023 2:10 PM 12/16/2023 11:37 AM
[2025-05-29 22:56] VITALS: BP 155/103; RESP 16; TEMP 36.4; O2SAT 100
[2025-05-30] VITALS (28 sets, daily range): BP systolic 113–149; BP diastolic 61–101; PULSE 72–108; RESP 14–24; TEMP 36.3–37.3; O2SAT 97–100; BMI 40.6
[2025-05-30 01:51] LABS: Hematocrit 38.3 % (37.0-47.0); Hemoglobin 13.2 g/dL (12.0-15.0); Immature Granulocyte Percent A 0.3 % (0-0.5); Lymphocytes Absolute Auto 2.05 K/mm3 (0.9-3.2); Mean Corpuscular HGB Conc 34.5 g/dl (32-36); Mean Corpuscular Hemoglobin 31.7 pg (26-34); Mean Corpuscular Volume 92.1 fl (80-100); Nucleated Red Blood Cells Absolute Auto 0.000 K/mm3 (0.0-0.012); Nucleated Red Blood Cells Perc 0.0 % (0.0-0.2); Platelet Count Result 229 k/mm3 (150-375); Red Blood Count 4.16 M/mm3 (4.2-5.4); White Blood Count 7.4 K/mm3 (4.5-10.0)
[2025-05-30 01:58] LABS: Add Urine Microscopic? YES; Appearance Urine Cloudy (Clear); Glucose Urine UA Negative (Negative); Leukocyte Esterase Ur 1+ LEU/UL (Negative); Nitrate Urine Negative (Negative); Non Pathogenic Casts 0-2; Specific Grav Ur 1.026 (1.001-1.035)
[2025-05-30 02:02] LABS: Alanine Aminotransferase 36 U/L (6-35); Albumin Level 4.3 g/dL (3.5-5.1); Alkaline Phosphatase 48 U/L (38-126); Anion Gap 8 mmol/L (4-12); Aspartate Amino Transferase 23 U/L (14-36); Bilirubin,Total 1.9 mg/dL (0.2-1.3); Blood Urea Nitrogen 15 mg/dL (7-17); Calcium 9.1 mg/dL (8.4-10.2); Carbon Dioxide 25 mmol/L (22-30); Chloride 106 mmol/L (98-107); Estimated CRCL calculation 122 ml/min; Estimated Glomerular Filt Rate > 60; Glucose 101 mg/dL (65-110); Lipase 147 U/L (23-300); Magnesium 1.9 mg/dL (1.6-2.3); Potassium 3.8 mmol/L (3.4-5.0); Sodium 139 mmol/L (137-145); Total Protein 7.4 g/dL (6.3-8.2)
[2025-05-30 03:02] LABS: Pregnancy On Board Control Positive
--- NOTE | 2025-05-30 05:12 | ED_ITS ---
HPI - Abdominal Pain General Chief Complaint: Abdominal Pain Stated Complaint: abd pain, nausea Time Seen by Provider: 05/30/25 03:14 History of Present Illness HPI narrative: Patient is a 35-year-old female who presents emergency department this evening complaining of right upper quadrant abdominal pain for the past few weeks but has been progressively getting worse. Admits to nausea and vomiting associated with the pain. Denies any similar symptoms in the past. Denies any recent illness, fevers or chills. Related Data Allergies Allergy/AdvReac Type Severity Reaction Status Date / Time latex Allergy Hives Verified 05/29/25 22:58 Review of Systems 2 Review of Systems: All systems are reviewed and are negative unless stated otherwise in the HPI. [facility] Past Medical History Medical History GERD (gastroesophageal reflux disease) Strain of lumbar region Surgical History Surgical History History of section Social History Social History Smoking status: Never smoker Alcohol intake: former Drinks per week: 1 Substance use: never Living arrangements: with family Spiritual care concerns: No Exam 2 Narrative: General: Alert, awake, afebrile, in no acute distress. HEENT: PERRL, no rhinorrhea, no post nasal drip, oropharynx clear. Neck: Trachea midline, no JVD, no lymphadenopathy. Cardiovascular: Regular rate and rhythm, no murmurs, rubs or gallops, no peripheral edema. Respiratory: Clear to auscultation bilaterally, no tachypnea, no wheezing, no rhonchi, no rubs, no respiratory distress. Abdomen: Soft, tenderness palpation over the right upper quadrant, nondistended, no rebound, no guarding, no peritoneal signs. Musculoskeletal: No joint swelling or deformity, normal muscle tone. Skin: No rashes or petechia, no signs of infection. Psychiatric: Alert and oriented, normal behavior and judgment for situation. Neurological: Alert and oriented to person, place, and time. Follows all commands. No focal deficits, speech is clear and fluent. Course Vital Signs Vital signs: Vital Signs Temperature 97.6 F 05/29/25 22:56 Respiratory Rate 16 05/29/25 22:56 Blood Pressure 155/103 H 05/29/25 22:56 Pulse Oximetry 100 05/29/25 22:56 Oxygen Delivery Room Air 05/29/25 22:56 Temperature 97.6 F 05/29/25 22:56 Pulse Rate 80 05/30/25 04:15 Respiratory Rate 20 05/30/25 04:15 Blood Pressure 136/81 05/30/25 04:15 Pulse Oximetry 100 05/30/25 04:15 Oxygen Delivery Room Air 05/29/25 22:56 MDM - Abdominal Pain MDM Narrative Medical decision making narrative: The patient was evaluated by myself in the emergency department. History is obtained from patient who is an independent historian and physical exam was performed. External medical records were reviewed at this time. IV was established and pertinent tests were ordered. Patient was administered 1 L IV fluid bolus with normal saline, 4 mg of IV Zofran for nausea and 4 mg of IV morphine for pain. Laboratory results obtained revealing an elevated bilirubin of 1.9 otherwise unremarkable. Urinalysis unremarkable. Imaging studies obtained included CT abdomen pelvis with IV contrast which was independently interpreted by me revealing acute cholecystitis with distension, gallstone and mild pericholecystic hazy attenuation, which is pending final radiology interpretation. Patient was started on IV antibiotics with Zosyn at that time, made NPO, started on maintenance fluids with normal saline at a rate of 100 cc/hour. Case was discussed with the on-call general surgeon Dr. Bruce at 0515 who accepted consultation. Case was also discussed with the on-call hospitalist Dr. Raza 0540 and he accepted admission. Differential diagnosis considerations include acute cholecystitis, biliary colic, peptic ulcer disease, pancreatitis, gastritis. Comorbidities impacting this visit include none. I have evaluated and discussed social determinants of health with the patient that could potentially impact subsequent diagnosis and treatment plans. On repeat assessment of the patient, reevaluation revealed that the patient is doing well and is in no acute distress. Patient symptoms have improved since she arrived to our emergency department. Repeat vital signs were all reviewed and noted to be stable. Differential diagnosis and treatment plan were discussed with the patient at bedside. Patient agrees with discussion and after shared medical decision making agrees with admission. All questions were answered to the patient's satisfaction. Lab Data 05/30/25 01:41 05/30/25 01:41 Labs: Lab Results 05/30/25 05/30/25 Range/Units 01:41 01:47 WBC 7.4 (4.5-10.0) K/mm3 RBC 4.16 L (4.2-5.4) M/mm3 Hgb 13.2 (12.0-15.0) g/dL Hct 38.3 (37.0-47.0) % MCV 92.1 (80-100) fl MCH 31.7 (26-34) pg MCHC 34.5 (32-36) g/dl RDW 11.9 (11.5-14.5) % Plt Count 229 (150-375) k/mm3 MPV 9.2 (7.4-10.4) fl Immature Gran % (Auto) 0.3 (0-0.5) % Neut % (Auto) 60.9 (45.5-73.1) % Lymph % (Auto) 27.7 (18.3-44.2) % [place] % (Auto) 9.7 H (2.6-8.5) % Eos % (Auto) 1.1 (0-4.4) % Baso % (Auto) 0.3 (0.2-1.2) % Lymph # (Auto) 2.05 (0.9-3.2) K/mm3 [place] # (Auto) 0.7 H (0.1-0.6) K/mm3 Eos # (Auto) 0.1 (0-0.3) K/mm3 Baso # (Auto) 0.0 (0.0-0.1) K/mm3 Abs Immat Gran (auto) 0.02 (0.00-0.031) K/mm3 Absolute Neuts (auto) 4.5 (1.3-6.7) K/mm3 Absolute Nucleated RBC 0.000 (0.0-0.012) K/mm3 Nucleated RBC % 0.0 (0.0-0.2) % Sodium 139 (137-145) mmol/L Potassium 3.8 (3.4-5.0) mmol/L Chloride 106 (98-107) mmol/L Carbon Dioxide 25 (22-30) mmol/L Anion Gap 8 (4-12) mmol/L BUN 15 (7-17) mg/dL Creatinine 0.68 L (0.7-1.0) mg/dL Estim Creat Clear Calc 122 ml/min Estimated GFR > 60 (59 - ) Glucose 101 (65-110) mg/dL Calcium 9.1 (8.4-10.2) mg/dL Magnesium 1.9 (1.6-2.3) mg/dL Total Bilirubin 1.9 H (0.2-1.3) mg/dL AST 23 (14-36) U/L ALT 36 H (6-35) U/L Alkaline Phosphatase 48 (38-126) U/L Total Protein 7.4 (6.3-8.2) g/dL Albumin 4.3 (3.5-5.1) g/dL Lipase 147 (23-300) U/L Urine Color Yellow (Yellow) Urine Appearance Cloudy H (Clear) Urine pH 5.5 (5.0-9.0) Ur Specific [place] 1.026 (1.001-1.035) Urine Protein Negative (Negative) mg/dL Urine Glucose (UA) Negative (Negative) mg/dL Urine Ketones Negative (Negative) mg/dL Ur Blood (Man) Negative (Negative) Urine Nitrate Negative (Negative) Urine Bilirubin Negative (Negative) Urine Urobilinogen 1.0 (<2.0) mg/dL Leukocyte Esterase Rfl 1+ H (Negative) MICHAEL/UL Urine RBC 0-2 (0-2) /hpf Urine WBC 6-10 H (0-3) /hpf Ur Squamous Epith Cells Moderate (Few) /hpf Urine Bacteria 1+ H /hpf Urine Casts 0-2 Urine Test Negative Discharge Plan Discharge Clinical Impression: Right upper quadrant abdominal pain, Acute cholecystitis Patient Disposition: Still a Patient Condition: Improved Instructions: Antibiotic Form Patient Language: Danish Prescriptions: No Action tamsulosin [Flomax] 0.4 mg capsule 0.4 mg PO DAILY Qty: 10 0RF hydrocodone-acetaminophen 5-325 mg tablet 1 tablet PO Q6H PRN (Reason: pain) Qty: 10 0RF Follow-up/Referrals: Karen,Kimmy Mac MD [Primary Care Provider, Unknown] Time of Disposition: 05:15
--- OUTSIDE RECORDS SUMMARY | 2025-05-30 05:13 | XMS_ITS | Clinical Summary ---
Author Organization [facility] Address [address] [place] [address] Care Team Providers Care Solutions Manager Name Role Phone Kimmy Jones MD Primary [...] How often do you attend chur or zoroastrian services? More than 4 times per year 12/15/2021 Do you belong to any clubs o r organizations such as anglican groups, unions, fraternal or athletic groups, or [...] Recorded Patient Health Questionnaire-2 Score 0 01/04/2025 [facility] - Occupational Stress [...] place to sleep or slept in a alf (including now)? 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 Gender Identity Female 11/06/2021 8:58 AM VMWARE ARCHITECT Sexual Orientation Not on file Last Filed [...] Description 01/13/2026 8:30 AM CDT Office Visit [facility] Family [facility] - [place] [address] [place] [id number] Kimmy Jones MD [address] [place] [address] Health Maintenance Due Date Last Done Comments Hepatitis C 2008 Hepatitis B Vaccines (1 of 3 - 19+ 3-dose series) 2009 HPV Vaccines (1 - 3-dose SCD M series) 2017 COVID-19 Vaccine ( - 2023-2 5 season) 2025 Annual Physical 01/04/2026 01/04/2025 DTaP, Tdap and Td Vaccines ( 3 - Td or Tdap) 10/24/2033 10/24/2023, 11/29/2021 PHQ-2 (Physician [place]) Completed 01/04/2025 Meningococcal B Vaccine Aged Out [...] 7:20 PM 12/10/2021 9:47 PM Care Teams Solutions Manager Relationship Specialty Start Date End Date Kimmy Jones MD [address] [place] [id number] PCP - General FAMILY PRACTICE 01/04/25
--- OUTSIDE RECORDS SUMMARY | 2025-05-30 05:13 | XMS_ITS | Clinical Summary ---
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 Gender Identity Not on file Sexual Orientation [...] 10/24/2033, 11/29/2021 Medical Devices Implanted Type Area Lamination Inspector Device Identifier Shelf Expiration Date Model / Serial / Lot Hemostat Sidney Ah Powder 3gm [id number] - [id number] Implanted:Qt y: 1 on 12/14/2023 by Russell Chase MD at [facility] Hemostatic N/A: Abdomen BARD DAVOL [id number] 04/19/2028 [id number] / / [id number] Insurance [facility] [id number] RX EXPRESS SCRIP[employer] Express RX [employer] PLANS (INTERNAL) [facility] Internal Plans [facility] [id number] Advance Directives For more information, please contact: [phone] * Full Code (Latest Code Status on [...]
[2025-05-30] MEDS: ONDANSETRON INJ 4 MG/2 ML VIAL IV PUSH ×3 (05:39→17:23)
[2025-05-30] MEDS: PIPERACILLIN/TAZOBACTAM SOD 4.5 GM in SODIUM CHLORIDE 0.9% IV 100 ML 200 ML IVPB (05:39)
[2025-05-30] MEDS: MORPHINE SULFATE (*CRX) 4 MG/ML INJ IV PUSH (05:39)
[2025-05-30] MEDS: SODIUM CHLORIDE 0.9% IV 1,000 ML 999 ML IV CONT (05:40)
[2025-05-30] MEDS: SODIUM CHLORIDE 0.9% IV 1,000 ML 100 ML IV CONT (05:46)
--- NOTE | 2025-05-30 06:27 | ADMGEN ---
This patient, Mona Ramirez, was admitted to 2 Medical Room 260-01. Patient/family oriented to hospital policies and general routines including ID bracelet, bed and alarms, visiting hours, pain management, procedures, bathroom and other care routines, personal items, smoking policy, room service/diet, and visiting hours. Information on how to activate the Rapid Response Team has been discussed. Patient/Family are encouraged to report perceived risks to care and to ask questions if they do not understand what they are told or what they should do.
--- NOTE | 2025-05-30 07:14 | PM.IMHP ---
H&P: HPI History of Present Illness Date/Time: 05/30/25 07:14 Chief Complaint: abdominal pain Narrative: 35 year old female with past medical history of GERD presents to the hospital for ED workup: CBC WBC 7.4, H/H 13.2/38.3, PLT 229. CMP with Na 139, K 3.8. BUN/Cr 15/0.68 with gfr > 60. Tot bili 1.9. LFTs WNL. Lipase WNL. UA nonconcerning for infection. Abdomen/pelvis CT: Review of Systems Review of Systems: All systems reviewed & are unremarkable except as noted in HPI and below PMFSH Past Medical History Medical History GERD (gastroesophageal reflux disease) Strain of lumbar region Surgical History Surgical History (Updated 05/30/25 @ 13:54 by Pooja Blake PA-C) H/O: hysterectomy History of section x2 Family History Family History Father Cardiac abnormality Mother Gallbladder disease Social History Social History (Updated 05/30/25 @ 13:54 by Pooja Blake PA-C) Social History: Lives with and 4 kids. No pets. Smoking status: Never smoker Alcohol intake: current Drinks per week: 1 Substance use: never Substance use type: does not use Lack of Transportation: No Lack of Food: Never True Current Housing: I Have Housing Concerned About Future Housing: No Difficulty Paying Gas/Electric Bills: No Difficulty Paying for Meds: No Currently Unemployed: No Education: Master's Degree or Higher Difficulty w/ Childcare or Family Care: No Living arrangements: with family Spiritual care concerns: No Meds Home Medications and Allergies Home Medications ?Medication ?Instructions ?Recorded ?Confirmed ?Type No Home Medications 05/30/25 05/30/25 History Allergies Allergy/AdvReac Type Severity Reaction Status Date / Time latex Allergy Hives Verified 05/29/25 22:58 Vital Signs Vital Signs - 24 hr 05/29/25 22:56 05/30/25 02:35 05/30/25 02:45 Temperature 97.6 F Pulse Rate 81 79 Respiratory Rate 16 21 H Blood Pressure 155/103 H 149/94 H 138/80 Pulse Oximetry 100 100 Oxygen Delivery Room Air 05/30/25 03:00 05/30/25 03:15 05/30/25 03:30 Temperature Pulse Rate 83 79 90 Respiratory Rate 24 H 23 H 16 Blood Pressure 132/83 141/82 H 134/91 H Pulse Oximetry 100 100 100 Oxygen Delivery 05/30/25 03:45 05/30/25 04:00 05/30/25 04:15 Temperature Pulse Rate 72 87 80 Respiratory Rate 22 H 20 Blood Pressure 145/78 H 131/82 136/81 Pulse Oximetry 100 100 Oxygen Delivery 05/30/25 04:29 05/30/25 04:30 05/30/25 04:32 Temperature Pulse Rate 79 80 79 Respiratory Rate 22 H 21 H 20 Blood Pressure 133/73 Pulse Oximetry 100 100 100 Oxygen Delivery 05/30/25 04:46 05/30/25 04:47 05/30/25 05:00 Temperature Pulse Rate 85 87 79 Respiratory Rate 22 H 14 22 H Blood Pressure 139/101 H Pulse Oximetry 100 100 Oxygen Delivery 05/30/25 05:17 05/30/25 05:18 05/30/25 05:35 Temperature Pulse Rate 80 81 87 Respiratory Rate 21 H 22 H 22 H Blood Pressure 134/83 Pulse Oximetry 100 100 100 Oxygen Delivery 05/30/25 05:58 05/30/25 06:00 05/30/25 06:15 Temperature Pulse Rate 90 98 83 Respiratory Rate 17 17 18 Blood Pressure Pulse Oximetry 100 100 99 Oxygen Delivery 05/30/25 06:26 05/30/25 06:33 Temperature 98.5 F Pulse Rate 100 Respiratory Rate 20 Blood Pressure 139/90 Pulse Oximetry 100 Oxygen Delivery Room Air Exam Narrative: AF HR 100 RR 20 Spo2 100 BP 139/90 General: female in no acute respiratory distress who is nontoxic appearing, sitting up in bed HEENT: Normocephalic. Atraumatic. Extraocular movement intact. Sclera clear and anicteric. No facial asymmetry. Neck: Neck was supple. No dominant adenopathy, thyromegaly or masses. Chest: Lungs are clear to auscultation bilaterally. No wheezes or crackles. CV: Heart was regular rate and rhythm. S1-S2. No murmurs, gallops, or rubs. Abd: Abdomen was soft. Tenderness to RUQ without gaurding. Nondistended. Positive bowel sounds. Ext: No clubbing, cyanosis, or edema. DP pulses bilaterally. Neuro: Patient is alert and oriented x4. Speech is clear. Psych: Normal nood and affect. Patient is pleasant and cooperative. H&P: Results Labs Labs: Short CBC 05/30/25 Range/Units 01:41 WBC 7.4 (4.5-10.0) K/mm3 Hgb 13.2 (12.0-15.0) g/dL Hct 38.3 (37.0-47.0) % Plt Count 229 (150-375) k/mm3 BMP 05/30/25 01:41 Sodium 139 Potassium 3.8 Chloride 106 Carbon Dioxide 25 BUN 15 Creatinine 0.68 L Glucose 101 Calcium 9.1 Liver Function 05/30/25 Range/Units 01:41 Total Bilirubin 1.9 H (0.2-1.3) mg/dL AST 23 (14-36) U/L ALT 36 H (6-35) U/L Alkaline Phosphatase 48 (38-126) U/L Albumin 4.3 (3.5-5.1) g/dL Urine 05/30/25 Range/Units 01:47 Urine Color Yellow (Yellow) Urine Appearance Cloudy H (Clear) Urine pH 5.5 (5.0-9.0) Ur Specific [place] 1.026 (1.001-1.035) Urine Protein Negative (Negative) mg/dL Urine Glucose (UA) Negative (Negative) mg/dL Assessment and Plan Assessment and plan (1) Acute cholecystitis: Code(s): K81.0 - Acute cholecystitis Status: Acute Assessment and Plan: CT abdomen/pelvis: - No meeting sepsis criteria - Lipase WNL. Tot bili elevated and LFTs WNL. - IV pain management: Morphine 2mg IV q4 PRN - Gentle IV fluid resuscitation - Started on Zosyn 3.375 mg every 6 hours - Diet:NPO - Consider ERCP if needed - Monitor vital signs, I and O's, check stool output, neuro status and patient is a fall risk - Monitor serum electrolytes and CBC - Monitor lactic acid - Consult general surgery for further evaluation, appreciate assistance and recommendation
--- OUTSIDE RECORDS SUMMARY | 2025-05-30 09:18 | XMS_ITS | Clinical Summary ---
Author Organization [facility] [address] [address] [facility] [address] Address [address] [place] [address] Phone Care Team Providers Care Pre Sales Technical Engineer Name Role Phone Unavailable Primary Care Provider [...] on file Legal Sex Female 5:07 PM PROCEDURE TECH Gender Identity Not on file Sexual Orientation [...] 10/24/2033, 11/29/2021 Medical Devices Implanted Type Area Certified Rehabilitation Counselor Device Identifier Shelf Expiration Date Model / Serial / Lot Hemostat Sidney Ah Powder 3gm [id number] - [id number] Implanted:Qt y: 1 on 12/14/2023 by Russell Chase MD at [facility] Hemostatic N/A: Abdomen BARD DAVOL [id number] 04/19/2028 [id number] / / [id number] [facility] [id number] RX EXPRESS SCRIPTS Express RX [employer]AR[employer] PLANS (INTERNAL) [facility] Internal Plans [facility] [id number] Advance Directives For more information, please contact: [phone] * Full Code (Latest Code Status on [...]
--- OUTSIDE RECORDS SUMMARY | 2025-05-30 09:18 | XMS_ITS | Clinical Summary ---
Author Organization [facility] Address [address] [place] [address] Care Team Providers Care Kitman Name Role Phone Kimmy Jones MD Primary [...] How often do you attend chur or christianity services? More than 4 times per year 12/15/2021 Do you belong to any clubs o r organizations such as oriental orthodox groups, unions, fraternal or athletic groups, or [...] Recorded Patient Health Questionnaire-2 Score 0 01/04/2025 [facility] Occupat ional Health - Occupational Stress [...] place to sleep or slept in a [place] health care facility (including now)? 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 Gender Identity Female 11/06/2021 8:58 AM SHIPPING ROOM SUPERVISOR Sexual Orientation Not on file Last Filed [...] Description 01/13/2026 8:30 AM CDT Office Visit [facility] Family Medicine - [place] [address] [place] [id number] Kimmy Jones MD [address] [place] [address] Health Maintenance Due Date Last Done Comments Hepatitis C 2008 Hepatitis B Vaccines (1 of 3 - 19+ 3-dose series) 2009 HPV Vaccines (1 - 3-dose SCD M series) 2017 COVID-19 Vaccine ( - 2023-2 5 season) 2025 Annual Physical 01/04/2026 01/04/2025 DTaP, Tdap and Td Vaccines ( 3 - Td or Tdap) 10/24/2033 10/24/2023, 11/29/2021 PHQ-2 (Physician [place]) Completed 01/04/2025 Meningococcal B Vaccine Aged Out [...] 7:20 PM 12/10/2021 9:47 PM Care Teams Kitman Relationship Specialty Start Date End Date Kimmy Jones MD [address] [place] [id number] PCP - General FAMILY PRACTICE 01/04/25
[2025-05-30 09:36] LABS: Hematocrit 38.8 % (37.0-47.0); Hemoglobin 13.5 g/dL (12.0-15.0); Mean Corpuscular HGB Conc 34.8 g/dl (32-36); Mean Corpuscular Hemoglobin 32.1 pg (26-34); Mean Corpuscular Volume 92.4 fl (80-100); Platelet Count Result 211 k/mm3 (150-375); Red Blood Count 4.20 M/mm3 (4.2-5.4); White Blood Count 6.1 K/mm3 (4.5-10.0)
--- NOTE | 2025-05-30 09:41 | P.HP_ITS ---
H&P: HPI History of Present Illness Date/Time: 05/30/25 09:41 Chief Complaint: Right upper quadrant abdominal pain, acute cholecystitis due to cholelithiasis. Narrative: Patient is a 35-year-old female who presented to the emergency room late last evening complaining of a several week history of intermittent but worsening right upper quadrant abdominal pain. Eating seems to make the symptoms worse sometimes. Had pain that radiated to her right shoulder and back. In the emergency room white blood count was normal. CT scan abdomen pelvis showed a dilated appendix with gallstones and some gallbladder wall thickening and pericholecystic fluid. Total bilirubin was 1.9 but a month ago it was 1.5. Other liver enzymes are normal. Her BMI is 40. Her past surgical history is notable for a emergent /hysterectomy at [facility] 17 months ago. No other abdominal surgery. Review of Systems Review of Systems: The remainder of the review of systems to include constitutional, HEENT, cardiovascular, respiratory, GI, , integumentary, musculoskeletal, endocrine, immunologic, hematologic, psychiatric, and neurologic are all negative except for which is mentioned above in the HPI. [facility] Past Medical History Medical History GERD (gastroesophageal reflux disease) Strain of lumbar region Surgical History Surgical History History of section Family History Family History Father Cardiac abnormality Mother Gallbladder disease Social History Social History Smoking status: Never smoker Alcohol intake: never Drinks per week: 1 Substance use: never Substance use type: does not use Lack of Transportation: No Lack of Food: Never True Current Housing: I Have Housing Concerned About Future Housing: No Difficulty Paying Gas/Electric Bills: No Difficulty Paying for Meds: No Currently Unemployed: No Education: Master's Degree or Higher Difficulty w/ Childcare or Family Care: No Living arrangements: with family Spiritual care concerns: No Meds Home Medications and Allergies Home Medications ?Medication ?Instructions ?Recorded ?Confirmed ?Type No Home Medications 05/30/25 05/30/25 H istory Allergies Allergy/AdvReac Type Severity Reaction Status Date / Time latex Allergy Hives Verified 05/29/25 22:58 Vital Signs Vital Signs - 24 hr 05/29/25 22:56 05/30/25 02:35 05/30/25 02:45 Temperature 36.4 C Pulse Rate 81 79 Respiratory Rate 16 21 H Blood Pressure 155/103 H 149/94 H 138/80 Pulse Oximetry 100 100 Oxygen Delivery Room Air 05/30/25 03:00 05/30/25 03:15 05/30/25 03:30 Temperature Pulse Rate 83 79 90 Respiratory Rate 24 H 23 H 16 Blood Pressure 132/83 141/82 H 134/91 H Pulse Oximetry 100 100 100 Oxygen Delivery 05/30/25 03:45 05/30/25 04:00 05/30/25 04:15 Temperature Pulse Rate 72 87 80 Respiratory Rate 22 H 20 Blood Pressure 145/78 H 131/82 136/81 Pulse Oximetry 100 100 Oxygen Delivery 05/30/25 04:29 05/30/25 04:30 05/30/25 04:32 Temperature Pulse Rate 79 80 79 Respiratory Rate 22 H 21 H 20 Blood Pressure 133/73 Pulse Oximetry 100 100 100 Oxygen Delivery 05/30/25 04:46 05/30/25 04:47 05/30/25 05:00 Temperature Pulse Rate 85 87 79 Respiratory Rate 22 H 14 22 H Blood Pressure 139/101 H Pulse Oximetry 100 100 Oxygen Delivery 05/30/25 05:17 05/30/25 05:18 05/30/25 05:35 Temperature Pulse Rate 80 81 87 Respiratory Rate 21 H 22 H 22 H Blood Pressure 134/83 Pulse Oximetry 100 100 100 Oxygen Delivery 05/30/25 05:58 05/30/25 06:00 05/30/25 06:15 Temperature Pulse Rate 90 98 83 Respiratory Rate 17 17 18 Blood Pressure Pulse Oximetry 100 100 99 Oxygen Delivery 05/30/25 06:26 05/30/25 06:33 Temperature 36.9 C Pulse Rate 100 Respiratory Rate 20 Blood Pressure 139/90 Pulse Oximetry 100 Oxygen Delivery Room Air Exam Const: General: comfortable and no acute distress HENMT: Ears: TM's normal bilaterally Face/Nose/Sinus: Normal nares present Mouth: Yes moist mucous membranes Eyes: General: appearance normal, both eyes and all related structures Sclera: sclerae normal Pupils: Equal, round and reactive pupils present EOM: EOMs intact bilaterally Neck: Neck: supple and no JVD Resp: Effort & Inspection: normal respiratory effort Auscultation: clear to auscultation bilaterally Cardio: Rate: regular rate Rhythm: regular rhythm GI: Other: Abdomen is obese but soft. Mild tenderness to palpation right upper quadrant over the gallbladder. No palpable gallbladder. Well-healed lower midline scar extending from just at the umbilicus extending down to the pubic symphysis. No lower abdominal incisional hernia. No generalized peritoneal signs. Skin: General skin exam: normal color and no rashes or lesions noted Neuro: General: gait normal Speech: normal speech Motor exam (neuro): 5/5 motor strength present throughout Sensory Exam: normal sensation Extrem: General: normal to inspection Psych: Mental Status: mental status grossly normal Affect: normal affect H&P: Results Labs Labs: Short CBC 05/30/25 05/30/25 Range/Units 01:41 09:28 WBC 7.4 6.1 (4.5-10.0) K/mm3 Hgb 13.2 13.5 (12.0-15.0) g/dL Hct 38.3 38.8 (37.0-47.0) % Plt Count 229 211 (150-375) k/mm3 BMP 05/30/25 01:41 Sodium 139 Potassium 3.8 Chloride 106 Carbon Dioxide 25 BUN 15 Creatinine 0.68 L Glucose 101 Calcium 9.1 Liver Function 05/30/25 Range/Units 01:41 Total Bilirubin 1.9 H (0.2-1.3) mg/dL AST 23 (14-36) U/L ALT 36 H (6-35) U/L Alkaline Phosphatase 48 (38-126) U/L Albumin 4.3 (3.5-5.1) g/dL Urine 05/30/25 Range/Units 01:47 Urine Color Yellow (Yellow) Urine Appearance Cloudy H (Clear) Urine pH 5.5 (5.0-9.0) Ur Specific [place] 1.026 (1.001-1.035) Urine Protein Negative (Negative) mg/dL Urine Glucose (UA) Negative (Negative) mg/dL Assessment and Plan Assessment and plan (1) Acute cholecystitis: Code(s): K81.0 - Acute cholecystitis Status: Acute Assessment and Plan: Patient appears to have mild acute cholecystitis secondary to cholelithiasis. Recommend proceeding with an urgent laparoscopic cholecystectomy possible conversion open cholecystectomy today. Risks, benefits, indications, and expected outcomes were discussed with the patient and/or family members. Specific risks to include bleeding and possible need for blood transfusion, infection, bile leak, injury to other organs, common bile duct injury, and conversion to open cholecystectomy has been discussed. I have answered all their questions and they agreed to proceed with surgery as outlined above. (2) Right upper quadrant abdominal pain: Code(s): R10.11 - Right upper quadrant pain Status: Acute Assessment and Plan: As above.
--- NOTE | 2025-05-30 09:45 | WPDHPUPDATE1 ---
History and Physical Update Update Date/Time: 05/30/25 09:45 History and Physical has been reviewed, including an updated exam of the patient. There are NO changes in the patient's condition. Risks, benefits, and alternatives have been discussed and questions answered. Patient agrees to proceed with procedure.
[2025-05-30 09:49] LABS: Alanine Aminotransferase 42 U/L (6-35); Albumin Level 4.4 g/dL (3.5-5.1); Alkaline Phosphatase 61 U/L (38-126); Anion Gap 11 mmol/L (4-12); Aspartate Amino Transferase 27 U/L (14-36); Bilirubin,Total 2.2 mg/dL (0.2-1.3); Blood Urea Nitrogen 10 mg/dL (7-17); Calcium 8.9 mg/dL (8.4-10.2); Carbon Dioxide 23 mmol/L (22-30); Chloride 106 mmol/L (98-107); Estimated CRCL calculation 120 ml/min; Estimated Glomerular Filt Rate > 60; Glucose 86 mg/dL (65-110); INR 1.0; Potassium 4.1 mmol/L (3.4-5.0); Prothrombin Time 12.7 Seconds (11.1-14.7); Sodium 140 mmol/L (137-145); Total Protein 7.6 g/dL (6.3-8.2)
--- NOTE | 2025-05-30 11:36 | P.PNAN_ITS ---
Anes - Initial Pre Proc Eval Procedure: Operation Date: 05/30/25 12:00 Proposed Procedures p Laparoscopic Cholecystectomy - Bunny Bruce MD Date/Time: 05/30/25 11:36 Surgeon: Sondra Raza MD Pre Op Diagnosis: Acute cholecystitis Patient Data Age: 35 Gender: F Height: 1.65 m Weight: 110.7 kg Last Vital Signs Temp 36.9 C 05/30/25 06:33 Pulse 100 05/30/25 06:33 Resp 20 05/30/25 06:33 BP 139/90 05/30/25 06:33 Pulse Ox 100 05/30/25 06:33 O2 Del Method Room Air 05/30/25 06:26 Allergies Allergy/AdvReac Type Severity Reaction Status Date / Time latex Allergy Hives Verified 05/29/25 22:58 Home Medications ?Medication ?Instructions ?Recorded ?Confirmed ?Type No Home Medications 05/30/25 05/30/25 H istory Laboratory Tests 05/30/25 05/30/25 05/30/25 01:41 01:47 09:28 WBC 7.4 K/mm3 6.1 K/mm3 (4.5-10.0) (4.5-10.0) RBC 4.16 L M/mm3 4.20 M/mm3 (4.2-5.4) (4.2-5.4) Hgb 13.2 g/dL 13.5 g/dL (12.0-15.0) (12.0-15.0) Hct 38.3 % 38.8 % (37.0-47.0) (37.0-47.0) MCV 92.1 fl 92.4 fl (80-100) (80-100) MCH 31.7 pg 32.1 pg (26-34) (26-34) MCHC 34.5 g/dl 34.8 g/dl (32-36) (32-36) RDW 11.9 % 11.9 % (11.5-14.5) (11.5-14.5) Plt Count 229 k/mm3 211 k/mm3 (150-375) (150-375) MPV 9.2 fl 8.9 fl (7.4-10.4) (7.4-10.4) Immature Gran % (Auto) 0.3 % (0-0.5) Neut % (Auto) 60.9 % (45.5-73.1) Lymph % (Auto) 27.7 % (18.3-44.2) [place] % (Auto) 9.7 H % (2.6-8.5) Eos % (Auto) 1.1 % (0-4.4) Baso % (Auto) 0.3 % (0.2-1.2) Lymph # (Auto) 2.05 K/mm3 (0.9-3.2) [place] # (Auto) 0.7 H K/mm3 (0.1-0.6) Eos # (Auto) 0.1 K/mm3 (0-0.3) Baso # (Auto) 0.0 K/mm3 (0.0-0.1) Abs Immat Gran (auto) 0.02 K/mm3 (0.00-0.031) Absolute Neuts (auto) 4.5 K/mm3 (1.3-6.7) Absolute Nucleated RBC 0.000 K/mm3 (0.0-0.012) Nucleated RBC % 0.0 % (0.0-0.2) PT 12.7 Seconds (11.1-14.7) INR 1.0 Sodium 139 mmol/L 140 mmol/L (137-145) (137-145) Potassium 3.8 mmol/L 4.1 mmol/L (3.4-5.0) (3.4-5.0) Chloride 106 mmol/L 106 mmol/L (98-107) (98-107) Carbon Dioxide 25 mmol/L 23 mmol/L (22-30) (22-30) Anion Gap 8 mmol/L 11 mmol/L (4-12) (4-12) BUN 15 mg/dL 10 D mg/dL (7-17) (7-17) Creatinine 0.68 L mg/dL 0.70 mg/dL (0.7-1.0) (0.7-1.0) Estim Creat Clear Calc 122 ml/min 120 ml/min Estimated GFR > 60 > 60 (59 - ) (59 - ) Glucose 101 mg/dL 86 mg/dL (65-110) (65-110) Calcium 9.1 mg/dL 8.9 mg/dL (8.4-10.2) (8.4-10.2) Magnesium 1.9 mg/dL (1.6-2.3) Total Bilirubin 1.9 H mg/dL 2.2 H mg/dL (0.2-1.3) (0.2-1.3) AST 23 U/L 27 U/L (14-36) (14-36) ALT 36 H U/L 42 H U/L (6-35) (6-35) Alkaline Phosphatase 48 U/L 61 U/L (38-126) (38-126) Total Protein 7.4 g/dL 7.6 g/dL (6.3-8.2) (6.3-8.2) Albumin 4.3 g/dL 4.4 g/dL (3.5-5.1) (3.5-5.1) Lipase 147 U/L (23-300) Urine Color Yellow (Yellow) Urine Appearance Cloudy H (Clear) Urine pH 5.5 (5.0-9.0) Ur Specific [place] 1.026 (1.001-1.035) Urine Protein Negative mg/dL (Negative) Urine Glucose (UA) Negative mg/dL (Negative) Urine Ketones Negative mg/dL (Negative) Ur Blood (Man) Negative (Negative) Urine Nitrate Negative (Negative) Urine Bilirubin Negative (Negative) Urine Urobilinogen 1.0 mg/dL (<2.0) Leukocyte Esterase Rfl 1+ H MICHAEL/UL (Negative) Urine RBC 0-2 /hpf (0-2) Urine WBC 6-10 H /hpf (0-3) Ur Squamous Epith Cells Moderate /hpf (Few) Urine Bacteria 1+ H /hpf Urine Casts 0-2 Urine Test Negative Blood Type O Positive Antibody Screen Negative Patient hx anesthesia problems: none Family hx anesthesia problems: none Results Review: All pre-operative results and documents have been reviewed as part of the pre- operative evaluation. [facility] Past Medical History Medical History GERD (gastroesophageal reflux disease) Strain of lumbar region Surgical History Surgical History History of section Family History Family History Father Cardiac abnormality Mother Gallbladder disease Social History Social History Smoking status: Never smoker Alcohol intake: never Drinks per week: 1 Substance use: never Substance use type: does not use Lack of Transportation: No Lack of Food: Never True Current Housing: I Have Housing Concerned About Future Housing: No Difficulty Paying Gas/Electric Bills: No Difficulty Paying for Meds: No Currently Unemployed: No Education: Master's Degree or Higher Difficulty w/ Childcare or Family Care: No Living arrangements: with family Spiritual care concerns: No Anes - Eval Final PreProcedure Day of Procedure 05/30/25 11:36 Patient weight: morbidly obese Heart: regular rate and rhythm Lungs: clear to auscultation Airway: Mallampati scale class II Neurological: alert and oriented Last oral intake: >/= 8 hours ASA classification: III Emergent: yes Anesthetic plan: proceed Anesthesia type and monitoring: general ETT and standard monitoring Results Review: All pre-operative results and documents have been reviewed as part of the pre- operative evaluation. Informed Consent: The patient's anesthetic plan and its attendant risks and benefits were discussed with the patient/family/POA. Questions were solicited and answers provided to the satisfaction of the patient/family/POA.
[2025-05-30] MEDS: LIDO 1%/EPINEPHRINE/PF 1:200,000 30 ML VIAL XX (12:16)
--- NOTE | 2025-05-30 12:20 | S_PTH ---
PATIENT: Mona Ramirez I LOC: [id number] U#:[id number] AGE/SX: 35/F ROOM: 260 RE05/30/[address]: Bunny Bruce MD : 1990 BED: 01 DIS: 05/31/2025 SPEC #: [id number] RECD: 05/31/25 07:16 STATUS: JIM REQ #: [id number] QUEENIE: 05/30/25 12:[address]: Bunny Bruce DEPT: [facility] Surgical RECD BY: Sammy Cason ENTERED: 05/31/25 07:17 SP TYPE: Surgical OTHR DR: MD Kimmy ArnettMD Tissues: A - Gallbladder Procedures: Hematoxylin and Eosin Stain Gross and Microscopic Level 3
[2025-05-30] MEDS: PIPERACILLIN/TAZOBACTAM SOD 3.375 GM in SODIUM CHLORIDE 0.9% IV 50 ML 100 ML IVPB (12:22)
[2025-05-30] MEDS: KETOROLAC 30 MG/ML VIAL (*BKC) IV PUSH (13:03)
[2025-05-30] MEDS: LACTATED RINGERS 1,000 ML 30 ML IV CONT ×2 (13:30)
--- NOTE | 2025-05-30 13:31 | P.OP_ITS ---
Procedure Note - Detailed Date of Procedure 05/30/25 Pre-op Diagnosis Acute cholecystitis Post-op Diagnosis Other (Acute cholecystitis secondary to cholelithiasis) Procedure Performed Laparoscopic cholecystectomy Surgeon Bunny Bruce MD Contour Path [employer] Operator STEFFANIE Marlow Anesthesia General Indications Patient is a 35-year-old female was admitted to the hospital through the emergency room with a almost 2 week history of intermittent right upper quadrant abdominal pain. She a white blood cell count but CT scan abdomen pelvis showed stone impacted within the neck of the gallbladder with thickening of the gallbladder wall pericholecystic fluid. She presents now for an urgent laparoscopic cholecystectomy. Findings The gallbladder was very distended and almost hydropic. No ptosis of the wall via gallbladder was noted but there was a large gallstone impacted within the neck of the gallbladder obstructing flow of bile out of the gallbladder. Description of Procedure After informed consent was obtained patient was brought to the operating room she was placed supine position and general endotracheal anesthesia was administered. The abdomen is then prepped and draped usual sterile fashion. A time-out was then performed correctly identifying the patient as well as procedure to be performed. She was on scheduled IV antibiotics. I then entered the abdomen left upper quadrant utilizing a 5mm Optiview port. Once inside the abdomen insufflated to adequate pneumoperitoneum of 15mmHg CO2. Once inside was able to view that there were omental adhesions to the epigastric region of the anterior abdominal wall and the falciform ligament. I then placed a 5mm left lateral abdominal port under direct visualization then utilized laparoscopic hook cautery dissection divided the adhesions of the omentum to the abdominal wall to giving obscured view of the periumbilical region. Once this was done I then placed a 5mm periumbilical trocar port under direct visualization. Laparoscopic was then switched over to periumbilical trocar port. Looking to the upper portions of the abdomen I was then able to identify the gallbladder which was acutely distended with hyperemia and edema of the gallbladder wall. There is no necrosis of the gallbladder wall. The gallbladder was tense and I could not grasp it without aspirating the gallbladder. I then placed a 12mm epigastric trocar port as well as 2 more 5mm right subcostal trocar ports all under direct visualization. A laparoscopic aspirating needle was then used to aspirate the gallbladder and once the gallbladder was no longer tense I was able to hold a laparoscopic grasper. The gallbladder was then elevated over the right half liver towards the right shoulder. Second grasper used to hold the gallbladder at the infundibulum. The gallbladder was acutely inflamed with very thickened gallbladder wall and edema but no adhesions of the omentum, duodenum, or stomach to the infundibular gallbladder. I then reduced the impacted gallstone at the neck of the gallbladder then was able to hold the gallbladder with a 2nd grasper on the infundibulum. Then with lateral traction infundibulum I was able to start the dissection and start stripping down the visceral peritoneum off of the infundibular gallbladder. Identified the cystic duct and then completely dissected the cystic duct out circumferentially. Cystic artery was identified and dissected out circumferentially as well. Posterior wall the gallbladder at the infundibulum dissected free of the liver into the critical view was obtained. At this point I then placed 2 clips proximally cystic duct and 2 clips distally high on infundibular gallbladder. Cystic duct was then divided Endo Oneil. A similar fashion cystic artery clipped and divided as well. The gallbladder was then resected off the liver utilizing electrocautery without eating spilling any bile or gallstones. The gallbladder was then placed into an Endo-Catch bag and brought out through the epigastric port site. The gallbladder and large gallstones within were sent to pathology for examination. I then irrigated out the right upper quadrant the abdomen gallbladder fossa with sterile saline solution. Hemostasis was good. The aspirated fluid from the right upper quadrant and from the pelvis. I then removed all the trocar ports under direct visualization all port sites appeared hemostatic. The abdomen was allowed to decompress. The 12mm epigastric trocar port fascial defect was then closed utilizing 0 Vicryl suture the fascial level. The skin edges in all the port sites were then approximated utilizing a running subcuticular 4 Monocryl suture. The incisions were then cleaned the skin glue sterile dressings were applied. The patient tolerated the procedure well no complications. All sponges, needles, and instrument counts were correct at the end procedure. EBL was _30__cc. The patient was awakened and taken to recovery in stable and satisfactory condition. Implants None Estimated Blood Loss 30 Drains No Packing No Pathology Yes (Gallbladder and gallstones to pathology) Complications No immediate complications Condition Stable Disposition PACU [facility] Billing Surgery - Charge Forward: Surgery Billing
[2025-05-30] MEDS: fentaNYL CITRATE INJ (*CRX) 100 MCG/2 ML VIAL 25 MCG IV PUSH ×4 (13:52→14:05)
--- NOTE | 2025-05-30 14:02 | PM.EVENT ---
Event Note Event Note Event Note: Discussed patient with surgery Dr. Bruce who states that surgery will be primary on this patient and no need for hospitalist team to see her at this time. Hospitalist team will sign off. Call for any questions.
[2025-05-30] MEDS: ACETAMINOPHEN 500 MG TABLET 1000 MG PO (14:49)
[2025-05-30] MEDS: MORPHINE SULFATE (*CRX) 2 MG/ML INJ IV PUSH (17:02)
[2025-05-31] VITALS: BP 112/68; PULSE 109; RESP 20; TEMP 36.9; O2SAT 96
[2025-05-31 04:00] VITALS: BP 115/66; PULSE 95; RESP 20; TEMP 36.5; O2SAT 97
[2025-05-31 04:48] LABS: Hematocrit 35.9 % (37.0-47.0); Hemoglobin 12.6 g/dL (12.0-15.0); Immature Granulocyte Percent A 0.4 % (0-0.5); Lymphocytes Absolute Auto 0.79 K/mm3 (0.9-3.2); Mean Corpuscular HGB Conc 35.1 g/dl (32-36); Mean Corpuscular Hemoglobin 32.0 pg (26-34); Mean Corpuscular Volume 91.1 fl (80-100); Nucleated Red Blood Cells Absolute Auto 0.000 K/mm3 (0.0-0.012); Nucleated Red Blood Cells Perc 0.0 % (0.0-0.2); Platelet Count Result 204 k/mm3 (150-375); Red Blood Count 3.94 M/mm3 (4.2-5.4); White Blood Count 9.4 K/mm3 (4.5-10.0)
[2025-05-31 05:19] LABS: Alanine Aminotransferase 58 U/L (6-35); Albumin Level 3.8 g/dL (3.5-5.1); Alkaline Phosphatase 54 U/L (38-126); Anion Gap 8 mmol/L (4-12); Aspartate Amino Transferase 36 U/L (14-36); Bilirubin,Total 1.8 mg/dL (0.2-1.3); Blood Urea Nitrogen 8 mg/dL (7-17); Calcium 8.4 mg/dL (8.4-10.2); Carbon Dioxide 22 mmol/L (22-30); Chloride 107 mmol/L (98-107); Estimated CRCL calculation 130 ml/min; Estimated Glomerular Filt Rate > 60; Glucose 118 mg/dL (65-110); Potassium 3.9 mmol/L (3.4-5.0); Sodium 137 mmol/L (137-145); Total Protein 6.6 g/dL (6.3-8.2)
[2025-05-31 08:00] VITALS: BP 128/75; PULSE 90; RESP 14; TEMP 36.6; O2SAT 99
[2025-05-31] MEDS: HYDROcodone/acetaminophen (*CRX) 5-325 MG TABLET 1 TAB PO (08:09)
--- NOTE | 2025-05-31 09:54 | WPDANESPN ---
Anes - Prog Note Post-Op Date/Time: 05/31/25 09:54 Cardiovascular status: normal Respiratory status: normal Airway patency: baseline Mental status: baseline Post-Op hydration status: normal Vital Signs: Last Vital Signs Temp 36.6 C 05/31/25 08:00 Pulse 90 05/31/25 08:00 Resp 14 05/31/25 08:00 BP 128/75 05/31/25 08:00 Pulse Ox 99 05/31/25 08:00 O2 Del Method Room Air 05/30/25 19:56 O2 Flow Rate 8 05/30/25 13:45 Pain Score (VAS): 2 I/O: Intake & Output 05/30/25 05/31/25 05/31/25 23:59 07:59 15:59 Intake Total 300 290 240 Balance 300 290 240 Laboratory Tests 05/31/25 04:20 05/31/25 04:20 05/30/25 05/31/25 09:28 04:20 WBC 9.4 RBC 3.94 L Hgb 12.6 Hct 35.9 L MCV 91.1 MCH 32.0 MCHC 35.1 RDW 11.7 Plt Count 204 MPV 9.1 Immature Gran % (Auto) 0.4 Neut % (Auto) 84.6 H Lymph % (Auto) 8.4 L [place] % (Auto) 6.5 Eos % (Auto) 0.0 Baso % (Auto) 0.1 L Lymph # (Auto) 0.79 L [place] # (Auto) 0.6 Eos # (Auto) 0.0 Baso # (Auto) 0.0 Abs Immat Gran (auto) 0.04 H Absolute Neuts (auto) 8.0 H Absolute Nucleated RBC 0.000 Nucleated RBC % 0.0 Sodium 137 Potassium 3.9 Chloride 107 Carbon Dioxide 22 Anion Gap 8 BUN 8 Creatinine 0.64 L Estim Creat Clear Calc 130 Estimated GFR > 60 Glucose 118 H Calcium 8.4 Total Bilirubin 1.8 H AST 36 ALT 58 H Alkaline Phosphatase 54 Total Protein 6.6 Albumin 3.8 Blood Type O Positive Antibody Screen Negative Post-procedural complaints: none Patient Feedback: Patient satisfied with anesthetic care.
[2025-05-31 12:00] VITALS: BP 124/72; PULSE 91; RESP 12; O2SAT 99
--- NOTE | 2025-05-31 12:41 | P.DS_ITS ---
DS: Admitting Diagnosis Discharge Date 05/31/2025 Admitting Diagnosis acute cholecystitis DS: Discharge Diagnosis Discharge Diagnosis (1) Acute cholecystitis: Code(s): K81.0 - Acute cholecystitis Status: Acute DS: Summary Hospital Course Reason for hospitalization: Patient presented to the ED on 05/30 with complaints of intermittent but worsening right upper quadrant pain x several weeks that is exacerbated by eating and radiates to right shoulder and back. In the ED, white blood cell count was normal. CT of the abdomen and pelvis showed stone impacted within the neck of the gallbladder with thickening of the gallbladder wall pericholecystic fluid. Total bilirubin was 1.9, but was 1.5 a month prior. All other liver enzymes were normal. Patient was admitted for laparoscopic cholecystectomy. Hospital Course: Patient was taken back to the OR 05/30 and underwent a laparoscopic cholecystectomy. The gallbladder was noted to be very distended and almost hydropic. No ptosis of the wall via gallbladder was noted, but there was a large gallstone impacted within the neck of the gallbladder obstructing flow of bile out of the gallbladder. Patient tolerated the procedure well with no complications. She was awakened and taken to the recovery room in stable and satisfactory condition. Prior to surgery, total bilirubin did increase to 2.2. All other liver enzymes remained fairly stable, aside from slight increase in ALT. Patient was able to tolerate a clear liquid diet after the surgery. On postop day 1, she was advanced to a regular diet with breakfast. She tolerated this well without any nausea or vomiting. Morning labs revealed a decreased bilirubin level of 1.8. WBC remained normal throughout the entire hospital stay. Patient was able to void without any difficulty. Passing flatus, but no bowel movement yet. Ambulating without assistance. Notes some incisional pain especially to the right upper quadrant incisions, but no deep sharp pain. Well managed with [place]. Surgically stable for discharge with follow up appointment with Dr. Beauchamp in 2 weeks. Status at Discharge Functional status at discharge: independent ambulation Overall status at discharge: patient is back to baseline Time Spent with Patient Time attestation: Total time spent providing and/or coordinating discharge services: Time spent: Less than 30 minutes Exam Const: General: comfortable and no acute distress Eyes: General: appearance normal, both eyes and all related structures Neck: Neck: supple Resp: Effort & Inspection: normal respiratory effort Cardio: Rate: regular rate GI: Inspection: non-distended GI Palp: Yes Soft to palpation, Yes Tenderness to palpation present (GI) (Incisional pain, especially to incisions in right upper quadrant.) and No Guarding due to palpation present (GI) Other: Incisions are clean and dry with glue intact. No evidence of infection, necrosis, dehiscence. Bruising present around each incision. Skin: General skin exam: normal color and no rashes or lesions noted Neuro: Sensory Exam: normal sensation Extrem: General: normal to inspection Psych: Mental Status: mental status grossly normal DS: Data Data Completed and Pending Pending studies at discharge: Pending at discharge 05/30/25 12:20 Surgical [PTH] Routine Labs on day of discharge: Labs from last 24 hours 05/31/25 04:20 WBC 9.4 RBC 3.94 L Hgb 12.6 Hct 35.9 L MCV 91.1 MCH 32.0 MCHC 35.1 RDW 11.7 Plt Count 204 MPV 9.1 Immature Gran % (Auto) 0.4 Neut % (Auto) 84.6 H Lymph % (Auto) 8.4 L Snyder % (Auto) 6.5 Eos % (Auto) 0.0 Baso % (Auto) 0.1 L Lymph # (Auto) 0.79 L Snyder # (Auto) 0.6 Eos # (Auto) 0.0 Baso # (Auto) 0.0 Abs Immat Gran (auto) 0.04 H Absolute Neuts (auto) 8.0 H Absolute Nucleated RBC 0.000 Nucleated RBC % 0.0 Sodium 137 Potassium 3.9 Chloride 107 Carbon Dioxide 22 Anion Gap 8 BUN 8 Creatinine 0.64 L Estim Creat Clear Calc 130 Estimated GFR > 60 Glucose 118 H Calcium 8.4 Total Bilirubin 1.8 H AST 36 ALT 58 H Alkaline Phosphatase 54 Total Protein 6.6 Albumin 3.8 Procedures/Treatments: Procedures Operation Date: 05/30/25 12:00 Actual Procedure Side Surgeon p Laparoscopic Cholecystectomy Not Applicable Bunny Beauchamp MD Imaging Radiologist's impression: ITS Impressions Abdomen/Pelvis CT 05/31/25 12:11 IMPRESSION: 1. Correlate for symptoms of early cholecystitis. Incidental findings above Discharge Plan Discharge Attending physician on discharge: Bunny Beauchamp Consulting providers: Bunny Beauchamp Discharging Clinician: Mary Ellen Carlson Anticipated Discharge Date/Time: 05/31/25 12:27 Patient Disposition: Home Activity: may shower Diet: low fat Wound Care Instructions: follow printed instructions Discharge Instructions: DISCHARGE INSTRUCTION SHEET FOR HERNIA, GALLBLADDER AND APPENDIX SURGERIES DR. BEAUCHAMP PATIENT TO TAKE HOME 1. May shower, no soaking in bath x 2weeks. 2. Call office for: * Wound increasingly painful or bleeding * Vomiting * Fever of greater than 101 degrees 3. If no bowel movement for three days, take 1 oz. (30 ml) Milk of Magnesia or MiraLax 17g 1 to 2 times daily. 4. No heavy lifting > 10-15 pounds x 2 weeks for laparoscopic cholecystectomy or appendectomy. 5. No driving for 3 days or while taking narcotic pain medications. 6. Ice to surgical site for 48 hours (30 min on, then 30 min off). 7. Up walking 10-30 minutes three times per day. 8. Resume previous home medications. 9. Follow-up 10-14 days in office for wound check or as previously scheduled. Call this number to schedule: 10. Oral pain medications prescription to be sent to pharmacy. Take Tylenol 500mg every 6 hours and Ibuprofen 600mg every 6 hours for the first 2 days, then as needed. 11. NUTRITION: Start out by drinking fluids and increase your diet as tolerated. If you experience nausea, try dry toast, crackers, and 7-UP. If nausea or vomiting persists, contact your surgeon?s office. 12. Gallbladders-Low Fat Diet for 2 weeks (send care note of low fat diet) Revised January 2019 Patient Instructions: Antibiotic Form, Low Fat Diet (DC) Patient Language: Guatem[place] Stand Alone Forms: General Discharge Information Follow-up/Referrals: Bunny Beauchamp MD [Physician, General Surgery] - 2 Weeks Referral Note: Call to schedule. Discharge Medications: New hydrocodone-acetaminophen 5-325 mg tablet 1 tablet PO Q4H PRN (Reason: pain) Qty: 10 0RF Date of admission: 05/30/25 05:42 Primary Care Provider: Karen,Kimmy Mac Admitting Provider: Bunny Beauchamp Attending physician on admission: Sondra Raza Condition: Improved
== END 2025-05-31 15:32 | disposition home or self-care (01) ==
LOC: ANHED 05-30 05:16 → ANH2MED 05-30 14:14
PROVIDERS: Admitting Provider Surgery; Emergency Provider Emergency Medicine; PCP Student in an Organized Health Care Education/Training Program; Visit Provider Surgery
PROC: 0FT44ZZ Resection of Gallbladder, Percutaneous Endoscopic Approach (ICD-10-PCS; CPT 47562; principal; 2025-05-30 12:00)
DX: K80.00 Calculus of gallbladder with acute cholecystitis without obstruction (principal); K21.9 Gastro-esophageal reflux disease without esophagitis; Z68.41 Body mass index [BMI] 40.0-44.9, adult
CPT/HCPCS: 47562; 36415; 74177; 80053; 81001; 81025; 83690; 83735; 85025; 85027; 85610; 86850; 86900; 86901; 88304; 96374; 96375; 99285; A9270; G0378; J1100; J1885; J2003; J2004; J2250; J2270; J2405; J2543; J2704; J3010; J7030; J7120; Q9967